=== PATIENT | male | born 1955 | race Caucasian/White ===

== ENCOUNTER 2023-09-17 17:19 | Emergency (ER) | payer MEDICARE, SELFPAY ==
[2023-09-17] VITALS (10 sets, daily range): BP systolic 94–145; BP diastolic 65–83; PULSE 70–77; TEMP 36.7; O2SAT 93–97; BMI 37.3
--- NOTE | 2023-09-17 17:29 | XR_ITS ---
The [address] [address] Patient Name: CHRISS DANIELSON MRN: [id number] date: 1955 Sex: M Assigned Patient Location: ER Current Patient Location: ED.MAIN Accession/Order Number: [id number] Exam Date: 09/17/2023 17:40 Report Date: 09/17/2023 18:26 At the request of: AHMET LYON Procedure: XR chest 1V EXAM: XR chest 1V at 1735 hours HISTORY: Chest pain COMPARISON: None. TECHNIQUE: AP upright portable chest x-ray FINDINGS: The heart is at the upper limits of normal in size for this projection. There is no evidence of cardiac decompensation. No acute infiltrate, effusion or pneumothorax is identified. The osseous structures are grossly intact. XR/XR chest 1V IMPRESSION: No acute infiltrate or evidence of cardiac decompensation. Electronically authenticated by: BOBO LEGGETT Date: 09/17/2023 18:26
--- NOTE | 2023-09-17 17:29 | ECG_ITS ---
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
--- NOTE | 2023-09-17 17:34 | ED.CHESTPAI1 ---
HPI - Chest Pain General Chief Complaint: Chest Pain Stated Complaint: CHEST PAIN Time Seen by Provider: 09/17/23 17:25 Source: patient Mode of arrival: walk-in Limitations: no limitations History of Present Illness HPI narrative: 68-year-old male presents to the emergency department for chest pain. It is in the middle part of his chest and it feels like a tightness. He also has it in his upper back and it has been there since this morning, continuously. No fever cough or shortness of breath. No injury or unusual activity. Related Data Home Medications ?Medication ?Instructions ?Recorded ?Confirmed allopurinol 100 mg tablet 100 mg PO DAILY 09/17/23 09/17/23 lisinopril 10 mg tablet 10 mg PO DAILY 09/17/23 09/17/23 Allergies Allergy/AdvReac Type Severity Reaction Status Date / Time No Known Drug Allergies Allergy Verified 09/17/23 17:22 Review of Systems ROS Narrative A ten point review of systems is negative except as noted above. Exam Narrative Exam Narrative: Nurses note and vital signs reviewed and patient is not hypoxic. General: The patient appears well and in no apparent distress. Patient is resting comfortably on cart. Skin: Warm, dry, no pallor noted. There is no rash noted. Head: Normocephalic, atraumatic Eye: Normal conjunctiva, no drainage Ears, Nose, Mouth, and Throat: oral mucosa is moist. Nares patent. Cardiovascular: Regular Rate and Rhythm Respiratory: Patient is in no distress, no accessory muscle use, lungs are clear to auscultation, no wheezing, rales or rhonchi Back: non-tender GI: Soft and nontender Musculoskeletal: The patient has no evidence of calf tenderness, no pitting edema, symmetrical pulses noted bilaterally Neurological: A&O, normal speech Psychiatric: Cooperative Constitutional Vital Signs, click to edit/add: Last Vital Signs Temp 98.0 F 09/17/23 17:23 Pulse 73 09/17/23 18:28 Resp 16 09/17/23 18:28 BP 113/73 09/17/23 18:28 Pulse Ox 94 L 09/17/23 18:28 Course Vital Signs Vital signs: Vital Signs Temperature 98.0 F 09/17/23 17:23 Pulse Rate 77 09/17/23 17:23 Respiratory Rate 18 09/17/23 17:23 Blood Pressure 145/83 H 09/17/23 17:23 Pulse Oximetry 97 09/17/23 17:23 Temperature 98.0 F 09/17/23 17:23 Pulse Rate 73 09/17/23 18:28 Respiratory Rate 16 09/17/23 18:28 Blood Pressure 113/73 09/17/23 18:28 Pulse Oximetry 94 L 09/17/23 18:28 MDM - Chest Pain MDM Narrative Medical decision making narrative: Initial blood work is negative including troponin. CTA is pending and the patient is signed out to Dr. Walsh at change of shift. Differential Diagnosis Differential diagnosis: Likely pneumothorax, unstable angina pectoris, atypical chest pain, st elevation myocardial infarction, costochondritis, chest pain and other (Thoracic aneurysm) Lab Data Attestation: I reviewed the patient's lab results. Labs: Lab Results 09/17/23 Range/Units 17:35 WBC 10.3 (4.0-11.0) 10^3/uL RBC 5.16 (4.70-6.10) 10^6/uL Hgb 15.1 (14.0-18.0) g/dL Hct 45.3 (42.0-54.0) % MCV 87.8 (80.0-94.0) fL MCH 29.3 (25.9-34.0) pg MCHC 33.3 (29.9-35.2) g/dL RDW 13.0 (11.0-15.0) % Plt Count 207 (150-450) 10^3/uL MPV 10.3 (9.5-13.5) fL Seg Neuts % (Manual) 40.0 Lymphocytes % (Manual) 36.0 (20.5-60.0) % Atypical Lymphs % (Man) 5.0 % Monocytes % (Manual) 15.0 H (1.7-12.0) % Eosinophils % (Manual) 2.0 (0.9-7.0) % Basophils % (Manual) 2.0 (0.2-2.0) % Neutrophils # (Manual) 4.12 (1.4-6.5) 10^3/uL Lymphocytes # (Manual) 3.70 (1.20-3.80) 10^3/uL Abs Atypical Lymphs Man 0.51 Monocytes # (Manual) 1.54 H (0.30-0.80) 10^3/uL Eosinophils # (Manual) 0.20 (0.00-0.70) 10^3/uL Basophils # (Manual) 0.20 H (0.00-0.10) 10^3/uL Sodium 138 (136-145) mmol/L Potassium 4.1 (3.5-5.1) mmol/L Chloride 103 (98-107) mmol/L Carbon Dioxide 26.5 (21.0-32.0) mmol/L Anion Gap 12.6 BUN 14.0 (7.0-18.0) mg/dL Creatinine 1.28 (0.70-1.30) mg/dL Est GFR ( Amer) >60 (>=60) Est GFR (Non-Af Amer) 56 L (>=60) BUN/Creatinine Ratio 10.9 Glucose 97 (74-106) mg/dL Calcium 9.2 (8.5-10.1) mg/dL Troponin I High Sens 10.2 (4.0-76.1) pg/mL Imaging Data Chest x-ray: Radiologist's impression: ITS Impressions Chest X-Ray 09/17/23 17:29 IMPRESSION: No acute infiltrate or evidence of cardiac decompensation. Electronically authenticated by: BOBO LEGGETT Date: 09/17/2023 18:26 ECG Data Attestation: I personally reviewed and interpreted this ECG as follows: (EKG on my interpretation shows normal sinus rhythm with a rate of 74 no acute change) Heart Score History: Moderately Suspicious ECG: Normal Age: >65 years Risk Factors: 1 or 2 Risk Factors Troponin: <Normal Limit Total Heart Score Recommendations & Risks:: 4 Discharge Plan Discharge Patient Disposition: Still a Patient
[2023-09-17 18:02] LABS: Hematocrit 45.3 % (42.0-54.0); Hemoglobin 15.1 g/dL (14.0-18.0); Mean Corpuscular HGB Conc 33.3 g/dL (29.9-35.2); Mean Corpuscular Hemoglobin 29.3 pg (25.9-34.0); Mean Corpuscular Volume 87.8 fL (80.0-94.0); Mean Platelet Volume 10.3 fL (9.5-13.5); Platelet Count 207 10^3/uL (150-450); Red Blood Count 5.16 10^6/uL (4.70-6.10); White Blood Count 10.3 10^3/uL (4.0-11.0)
[2023-09-17 18:24] LABS: Atypical Lymphocytes Abs Man 0.51; Monocytes Absolute Manual 1.54 10^3/uL (0.30-0.80); Segmented Neut Absolute Manual 4.12 10^3/uL (1.4-6.5)
[2023-09-17 18:30] LABS: Anion Gap 12.6; BUN Creatinine Ratio 10.9; Calcium 9.2 mg/dL (8.5-10.1); Carbon Dioxide 26.5 mmol/L (21.0-32.0); Chloride 103 mmol/L (98-107); Estimated GFR (African America >60 (>=60); Estimated GFR (Non-African Ame 56 (>=60); Glucose 97 mg/dL (74-106); Potassium 4.1 mmol/L (3.5-5.1); Sodium 138 mmol/L (136-145); Troponin I High Sensitivity 10.2 pg/mL (4.0-76.1)
--- NOTE | 2023-09-17 18:34 | CT_ITS ---
[address] [address] Patient Name: CHRISS DANIELSON MRN: [id number] date: 1955 Sex: M Assigned Patient Location: ER Current Patient Location: ED.MAIN Accession/Order Number: [id number] Exam Date: 09/17/2023 18:41 Report Date: 09/17/2023 19:51 At the request of: AHMET LYON Procedure: CT angio chest CTA CHEST. INDICATION: Chest and back pain. COMPARISON: None available. TECHNIQUE: CT pulmonary angiogram. Initially, limited axial non-contrast images through chest obtained to establish proper bolus timing. Subsequently, contrast enhanced axial CT images were obtained through the chest. Axial, sagittal and coronal reformatted maximum intensity projection images and / or 3D volume rendered images created. FINDINGS: PULMONARY ARTERIES: No intraluminal filling defects within the central pulmonary arteries to suggest pulmonary embolism.. Limited evaluation of the segmental and subsegmental branches due to suboptimal opacification. Normal RV:LV ratio (<1). AORTA: The thoracic aorta diameter is normal without aneurysm or dissection. LUNGS: There are mild subpleural groundglass opacities in the lower lobes. No pleural effusions.. No pneumothorax. LYMPH NODES: No enlarged mediastinal lymph nodes by CT criteria. HEART: Heart size is normal. No pericardial effusion. Coronary artery calcification. UPPER ABDOMEN: Images of the upper abdomen demonstrate no abnormality. MUSCULOSKELETAL: No acute osseous abnormality. CT/CT angio chest IMPRESSION: 1. No central pulmonary thromboembolic disease. Limited evaluation of the segmental and subsegmental branches. 2. No aortic aneurysm or dissection. 3. Mild groundglass opacities in the lower lobes which may represent atelectasis or infection/inflammation. Electronically authenticated by: JIM TOLBERT Date: 09/17/2023 19:51
== END 2023-09-17 20:15 | disposition home or self-care (01) ==
PROVIDERS: Emergency Medicine; Emergency Provider Internal Medicine; PCP Family Medicine
DX: R07.89 Other chest pain (principal)
CPT/HCPCS: 36415; 71045; 71275; 80048; 84484; 85007; 85027; 93005; 99285; Q9967

== ENCOUNTER 2024-01-03 10:37 | Outpatient (OUT) | payer MEDICARE, SELFPAY ==
--- OUTSIDE RECORDS SUMMARY | 2024-01-03 10:43 | XMS_ITS | CCD ---
Author Organization [facility] Care Team Providers Care Child Care Development Specialist Name Role Phone DR ANDRZEJ ZENG Consulting Unavailable KARRI, DR ANDRZEJ Ramesh Attending Unavailable DR ANDRZEJ ZENG Admitting Unavailable KARRI, DR ANDRZEJ Ramesh Primary Care Unavailable Elvis Yang Unavailable MD Andrzej Zeng Primary Care Provider MD Anuj Spicer Emergency Provider [phone] DO Elvis Yang Attending Provider Virginia Alfredo Unavailable Anne [place] Unavailable ANDRZEJ ZENG Attending Unavailable Andrzej Zeng Primary Care Unavailable Anuj Spicer Attending Unavailable Anuj Spicer Admitting Unavailable Elvis Yang Attending Unavailable Elvis Yang Admitting Unavailable Andrzej Zeng Primary Care Unavailable Medications Current Medications Medication Drug Class(es) Dates Sig (Normalized) Sig (Original) acetaminophen 500 mg oral capsule (3 sources) take 2 capsules by mouth every six hours Acetaminophen 500 MG 2 capsule as needed Orally every 6 hrs Active take 1 capsule by mouth every si x hours Acetaminophen 500 MG 1 capsule as needed Orally every 6 hrs Active allopurinol 100 mg oral tablet (3 sources) Xanthine Oxidase Inhibitor take 1 tablet by mouth every twenty-four hours Allopurinol 100 MG 1 tablet Orally Once a day Active lisinopril 10 mg oral tablet (3 sources) Angiotensin Converting Enzyme Inhibitor take 1 tablet by mouth every twenty-four hours Lisinopril 10 MG 1 tablet Orally Once a day Active Problems Active Problems Problem Classification Problem Date Documented Da te Episodic/Chronic Diabetes mellitus without complication (1 source) Prediabetes; Translations: [PREDIABETES] Onset: 06-29-2022 Episodic Disorders of lipid metabolism (1 source) Hyperlipidemia, unspecified; Translations: [HYPERLIPIDEMIA UNSPECIFIED] Onset: 06-29-2022 Chronic Essential hypertension (4 sources) Essential (primary) hypertension; Translations: [ESSENTIAL PRIMARY HYPERTENSION] Onset: 06-26-2022 Chronic Fever of unknown origin (1 source) Fever, unspecified Episodic Fracture of upper limb (3 sources) Other fractures of lower end of right radius, initial encounter for closed fracture; Translations: [Closed fracture of distal end of radius] Episodic Nutritional deficiencies (1 source) Vitamin D deficiency, unspecified; Translations: [VITAMIN D DEFICIENCY UNSPECIFIED] Onset: 06-29-2022 Chronic Other aftercare (1 source) 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; Translations: [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 DRUG THERAPY] Onset: 06-29-2022 Episodic Other nutritional; endocrine; and metabolic disorders (1 source) Obesity, unspecified; Translations: [OBESITY UNSPECIFIED] Onset: 06-29-2022 Chronic Other nutritional; endocrine; and metabolic disorders (1 source) Body mass index (BMI) 30.0-30.9, adult; Translations: [BODY MASS INDEX BMI 30.0-30.9 ADULT] Onset: 06-29-2022 Chronic Other screening for suspected conditions (not mental disorders or infectious disease) (1 source) Encounter for screening for malignant neoplasm of prostate; Translations: [ENC SCREEN MALIG NEOPLASM PROSTATE] Onset: 06-29-2022 Episodic Unclassified (1 source) Other fractures of lower end of right radius, initial encounter for closed fracture; Translations: [Other fractures of lower end of right radius, initial encounter for closed fracture] Onset: 02-01-2023 Past or Other Problems Problem Classification Problem Date Documented Da te Episodic/Chronic Other non-traumatic joint disorders (1 source) Pain in right wrist; Translations: [Pain in right wrist] Onset: 01-06-2023 Episodic Viral infection (1 source) COVID-19 Results Test Name Value Interpretation Reference Range Facility COVID/FLU/RSV RT-PCRon 04-13 SARS-CoV-2 (COVID-19) RNA KRISTIE+probe Ql (Unsp spec) Positive [facility] [employer] Other COVID/FLU/RSV RT-PCR Negative [facility] Other XR wrist RT 2Von 02-01-2023 XR wrist RT 2V [facility] [address] [place] [address] [place] [address] XRay Report Signed Patient: Alfredito Rodriguez MR#: [id number] 09 : 1955 Acct:[id number] Age/Sex: 67 / M ADM Date: 02/01/23 Loc: [facility] Room: Type: [facility] Attending Dr: Elvis Yang DO Copies to: Elvis Yang DO Ordering Provider: Elvis Yang DO Date of Service: 02/01/23 XR/XR wrist RT 2V: Other closed fracture of distal end of right radius, initial RIGHT WRIST - 2 views COMPARISON: 01/06/2023 CLINICAL DATA: Follow-up distal radius fracture. AP and lateral views were obtained. A nondisplaced intra-articular fracture is again noted at the distal radius. There is no change in alignment though there is developing sclerosis. No new f racture or dislocation is identified. There is no prominent soft tissue swelling. XR/XR wrist RT 2V IMPRESSION: STABLE HEALING DISTAL RADIUS FRACTURE. Impression dictated by: Linsey De Leon M.D.02/01/2023 2:43 PM Dictation Location: [place] [address] Transcribed By: [facility] 02/01/23 1443 Dictated By: Linsey De Leon MD 02/01/23 144 Signed By: 02/01/23 1443 Normal [facility] XR wrist RT 2V [facility] [employer] Other XR wrist RT 2V [facility] Other XR wrist RT 2V [address] [facility] [employer] Other XR wrist RT 2[place] [address] No rt [employer] Other XR wrist RT 2V XRay Report [employer] Other XR wrist RT 2V Signed [employer] Other XR wrist RT 2V Patient: Alfredito Rodriguez MR#: [id number] [facility] Other XR wrist RT 2V 09 [employer] Other XR wrist RT 2V : 1955 Acct:[id number] [facility] Other XR wrist RT 2V Age/Sex: 67 / M ADM Date: 02/01/23 [facility] Other XR wrist RT 2V Loc: [facility] Room: Type: [facility] Other XR wrist RT 2V Attending Dr: Elvis Yang DO [facility] Other XR wrist RT 2V Copies to: Elvis Yang DO [facility] Other XR wrist RT 2V Ordering Provider: Elvis Yang DO [facility] Other XR wrist RT 2V Date of Service: 02/01/23 [facility] Other XR wrist RT 2V XR/XR wrist RT 2V: Other closed fracture of distal end of right radius, [facility] Other XR wrist RT 2V initial [employer] Other XR wrist RT 2V RIGHT WRIST - 2 views [facility] Other XR wrist RT 2V COMPARISON: 01/06/2023 [facility] Other XR wrist RT 2V CLINICAL DATA: Follow-up distal radius fracture. [facility] Other XR wrist RT 2V AP and lateral views were obtained. A nondisplaced intra-articular fracture is again noted at the [facility] Other XR wrist RT 2V distal radius. There is no change in alignment though there is developing sclerosis. No new f [facility] Other XR wrist RT 2V racture or dislocation is identified. There is no prominent soft tissue swelling. [facility] Other XR wrist RT 2V XR/XR wrist RT 2V [facility] Other XR wrist RT 2V IMPRESSION: [employer] Other XR wrist RT 2V STABLE HEALING DISTAL RADIUS FRACTURE. [facility] Other XR wrist RT 2V Impression dictated by: Linsey De Leon M.D.02/01/2023 2:43 PM [facility] Other XR wrist RT 2V Dictation Location: [place] [address] [facility] Other XR wrist RT 2V Transcribed By: [facility] 02/01/23 [facility] Other XR wrist RT 2V Dictated By: Linsey De Leon MD 02/01/23 [facility] Other XR wrist RT 2V Signed By: [employer] Other XR wrist RT 2V 02/01/23 [facility] [employer] Other XR wrist RT min 3V*on 2022 XR wrist RT min 3V* [facility] [place] [address] [place] [address] XRay Report Signed Patient: Alfredito Rodriguez MR#: [id number] 09 : 1955 Acct:[id number] Age/Sex: 67 / M ADM Date: 01/06/23 Loc: ER Room: Type: [facility] ER Attending Dr: Copies to: Anuj Spicer MD Ordering Provider: Anuj Spicer MD Date of Service: 01/06/23 XR/XR wrist RT min 3V*: Fall XR wrist RT min 3V* 01/06/2023 5:47 PM SIGNS AND SYMPTOMS: Fall, right wrist pain PROTOCOL: Frontal, lateral, and oblique radiographs of the right wrist COMPARISON: None FINDINGS: Lucency traverses the articular surface of the distal radius suspicious for an intra-articular distal radius fracture. The radiocarpal joint and carpal rows are otherwise preserved. The distal ulna is intact. There is nonspecific soft tissue swelling. XR/XR wrist RT min 3V* IMPRESSION: Lucency traverses the articular surface of the distal radius suspicious for an intra-articular distal radius fracture. Impression dictated by: Blaise Pastrana M.D.01/06/2023 5:49 PM Dictation Location: [place] [address] Transcribed By: MINA 01/06/231748 Dictated By: Blaise Pastrana II, MD 01/06/231746 Signed By: 01/06/231748 Normal [facility] CBC AUTO DIFFon 06-26-2022 BASO # 0.0 103/ul Normal 0.0-0.1 [facility] Comment on above: Performed By: #### C BC #### [facility] [address] [place] [address] Dr. Talia Santana Basophils/100 WBC (Bld) 0.6 % Normal 0.2-2.0 [facility] Comment on above: Performed By: #### C BC #### [facility] [address] [place] [address] Dr. Talia Santana EO # 0.1 103/ul Normal 0.0-0.7 [facility] Comment on above: Performed By: #### C BC #### [facility] [address] [place] [address] Dr. Talia Santana Eosinophils/100 WBC (Bld) 2.0 % Normal 0.9-7.0 [facility] Comment on above: Performed By: #### C BC #### [facility] [address] [place] [address] Dr. Talia Santana Erythrocyte distribution width (RBC) [Ratio] 13.5 % Normal 11.0-15.0 [facility] Comment on above: Performed By: #### C BC #### [facility] [address] [place] [address] Dr. Talia Santana Hematocrit (Bld) [Volume fraction] 41.9 % Critically low 42.0-54.0 [facility] Comment on above: Performed By: #### C BC #### [facility] [address] [place] [address] Dr. Talia Santana Hemoglobin (Bld) [Mass/Vol] 13.8 g/dL Critically low 14.0-18.0 [facility] Comment on above: Performed By: #### C BC #### [facility] [address] [place] [address] Dr. Talia Santana IG # 0.03 10e3/ul Normal 0.00-0.03 [facility] Comment on above: Performed By: #### C BC #### [facility] [address] [place] [address] Dr. Talia Santana IG % 0.5 % Normal 0.0-0.5 [facility] Comment on above: Performed By: #### C BC #### [facility] [address] [place] [address] Dr. Talia Santana LYMPH # 1.6 103/ul Normal 1.2-3.8 [facility] Comment on above: Performed By: #### C BC #### [facility] [address] [place] [address] Dr. Talia Santana Lymphocytes/100 WBC (Bld) 24.1 % Normal 20.5-60.0 [facility] Comment on above: Performed By: #### C BC #### [facility] [address] [place] [address] Dr. Talia Santana MANUAL DIFF REQ NO Normal [facility] Comment on above: Performed By: #### C BC #### [facility] [address] [place] [address] Dr. Talia Santana MCH (RBC) [Entitic mass] 28.9 pg Normal 25.9-34.0 [facility] Comment on above: Performed By: #### C BC #### [facility] [address] [place] [address] Dr. Talia Santana MCHC (RBC) [Mass/Vol] 32.9 g/dL Normal 29.9-35.2 [facility] Comment on above: Performed By: #### C BC #### [facility] [address] [place] [address] [address] Talia Santana MCV (RBC) [Entitic vol] 87.8 fL Normal 80.0-94.0 [facility] Comment on above: Performed By: #### C BC #### [facility] [address] [address] [address] Talia Santana MONO # 0.8 103/ul Normal 0.3-0.8 [facility] Comment on above: Performed By: #### C BC #### [facility] [address] [place] [address] Dr. Talia Santana Monocytes/100 WBC (Bld) 12.7 % Critically high 1.7-12.0 [facility] Comment on above: Performed By: #### C BC #### [facility] [address] [place] [address] Dr. Talia Santana NEUT # 4.0 103/ul Normal 1.4-6.5 [facility] Comment on above: Performed By: #### C BC #### [facility] [address] [place] [address] Dr. Talia Santana Neutrophils/100 WBC (Bld) 60.1 % Normal 43.0-75.0 [facility] Comment on above: Performed By: #### C BC #### [facility] [address] [place] [address] Dr. Talia Santana Platelet mean volume (Bld) [Entitic vol] 9.8 fL Normal 9.5-13.5 [facility] Comment on above: Performed By: #### C BC #### [facility] [address] [place] [address] Dr. Talia Santana PLT 227 103/ul Normal 150-450 [facility] Comment on above: Performed By: #### C BC #### [facility] [address] [place] [address] Dr. Talia Santana RBC 4.77 106/ul Normal 4.70-6.10 [facility] Comment on above: Performed By: #### C BC #### [facility] [address] [address] [address] Talia Santana WBC 6.6 103/ul Normal 4.0-11.0 [facility] Comment on above: Performed By: #### C BC #### [facility] [address] [address] [address] Talia Santana GLYCOHEMOGLOBIN A1Con 2022 ADA RECOMMENDATION SEE BELOW Normal [facility] Comment on above: Result Comment: ADA RECOMMENDED LIMIT 4.0 - 6.0 ADA THERAPEUTIC TARGET < 7.0 ACTION SUGGESTED > 7.0 Performed By: #### A 1C #### [facility] [address] [place] [address] Dr. Talia Santana Glucose [Mass/Vol] 131 mg/dL Normal [facility] Comment on above: Performed By: #### A 1C #### [facility] [address] [place] [address] Dr. Talia Santana HbA1c (Bld) [Mass fraction] 6.2 % Normal 4.5-6.2 [facility] Comment on above: Performed By: #### A 1C #### [facility] [address] [place] [address] Dr. Talia Santana LIPID PROFILEon 06-26-2022 CHOL-HDL RATIO NORM SEE BELOW Normal [facility] Comment on above: Result Comment: 3.3 - 4.4 LOW RISK 4.4 - 7.1 AVERAGE RISK 7.1 - 11.0 MODERATE RISK >11.0 HIGH RISK Performed By: #### L IVER, BMP, LIPID, TSH #### [facility] [address] [place] [address] Dr. Talia Santana Cholesterol [Mass/Vol] 144 mg/dL Normal <=200 [facility] Comment on above: Performed By: #### L IVER, BMP, LIPID, TSH #### [facility] [address] [place] [address] Dr. Talia Santana Cholesterol in HDL [Mass/Vol] 33 mg/dL Critically low 40-60 [facility] Comment on above: Performed By: #### L IVER, BMP, LIPID, TSH #### [facility] [address] [place] [address] [address] Talia Santana Cholesterol in LDL [Mass/Vol] 91.6 mg/dL Normal [facility] Comment on above: Performed By: #### L IVER, BMP, LIPID, TSH #### [facility] [address] [place] [address] [address] Talia Santana Cholesterol.total/Ch olesterol in HDL [Mass ratio] 4.4 {ratio} Normal [facility] Comment on above: Performed By: #### L IVER, BMP, LIPID, TSH #### [facility] [address] [place] [address] [address] Talia Santana HDL NORMAL > or = 60 mg/dl - LOW CARDIOVASCULAR RISK <40 mg/dl - HIGH CARDIOVASCULAR RISK Normal [facility] Comment on above: Performed By: #### L IVER, BMP, LIPID, TSH #### [facility] [address] [place] [address] [address] Talia Santana LDL CALC NORMAL SEE BELOW Normal [facility] Comment on above: Result Comment: <100 mg/dl OPTIMAL 100 - 129 mg/dl NEAR OR ABOVE OPTIMAL 130 - 159 mg/dl BORDERLINE HIGH 160 - 189 mg/dl HIGH >190 mg/dl VERY HIGH Performed By: #### L IVER, BMP, LIPID, TSH #### [facility] [address] [place] [address] [address] Talia Santana Triglyceride [Mass/Vol] 97 mg/dL Normal <=150 [facility] Comment on above: Performed By: #### L IVER, BMP, LIPID, TSH #### [facility] [address] [place] [address] [address] Talia Santana VLDL CALC 19.4 mg/dL Normal [facility] Comment on above: Performed By: #### L IVER, BMP, LIPID, TSH #### [facility] [address] [place] [address] [address] Talia Santana LIVER PROFILEon 06-26-2022 Albumin [Mass/Vol] 3.5 g/dL Normal 3.4-5.0 [facility] Comment on above: Performed By: #### L IVER, BMP, LIPID, TSH #### [facility] [address] [place] [address] [address] Talia Santana Albumin/Globulin [Mass ratio] 0.9 {ratio} Normal [facility] Comment on above: Performed By: #### L IVER, BMP, LIPID, TSH #### [facility] [address] [place] [address] Dr. Talia Santana ALP [Catalytic activity/Vol] 64 U/L Normal 46-116 [facility] Comment on above: Performed By: #### L IVER, BMP, LIPID, TSH #### [facility] [address] [place] [address] Dr. Talia Santana ALT [Catalytic activity/Vol] 31 U/L Normal 16-63 [facility] Comment on above: Performed By: #### L IVER, BMP, LIPID, TSH #### [facility] [address] [place] [address] Dr. Talia Santana AST [Catalytic activity/Vol] 22 U/L Normal 15-37 [facility] Comment on above: Performed By: #### L IVER, BMP, LIPID, TSH #### [facility] [address] [place] [address] Dr. Talia Santana BILI, CONJUGATED 0.2 mg/dL Normal 0.0-0.2 [facility] Comment on above: Performed By: #### L IVER, BMP, LIPID, TSH #### [facility] [address] [place] [address] Dr. Talia Santana Bilirubin [Mass/Vol] 0.8 mg/dL Normal 0.2-1.0 [facility] Comment on above: Performed By: #### L IVER, BMP, LIPID, TSH #### [facility] [address] [place] [address] Dr. Talia Santana Globulin (S) [Mass/Vol] 3.9 g/dL Normal [facility] Comment on above: Performed By: #### L IVER, BMP, LIPID, TSH #### [facility] [address] [place] [address] Dr. Talia Santana Protein [Mass/Vol] 7.4 g/dL Normal 6.4-8.2 [facility] Comment on above: Performed By: #### L IVER, BMP, LIPID, TSH #### [facility] [address] [place] [address] Dr. Talia Santana PROF CHEM 8 (BAS METB)on Anion gap [Moles/Vol] 13.7 mmol/L Normal [facility] Comment on above: Performed By: #### L IVER, BMP, LIPID, TSH #### [facility] [address] [place] [address] Dr. Talia Santana Calcium [Mass/Vol] 9.0 mg/dL Normal 8.5-10.1 [facility] Comment on above: Performed By: #### L IVER, BMP, LIPID, TSH #### [facility] [address] [place] [address] Dr. Talia Santana Chloride [Moles/Vol] 104 mmol/L Normal 98-107 [facility] Comment on above: Performed By: #### L IVER, BMP, LIPID, TSH #### [facility] [address] [place] [address] Dr. Talia Santana CO2 [Moles/Vol] 26.7 mmol/L Normal 21.0-32.0 [facility] Comment on above: Performed By: #### L IVER, BMP, LIPID, TSH #### [facility] [address] [place] [address] Dr. Talia Santana Creatinine [Mass/Vol] 1.16 mg/dL Normal 0.70-1.30 [facility] Comment on above: Performed By: #### L IVER, BMP, LIPID, TSH #### [facility] [address] [place] [address] Dr. Talia Santana EGFR-AF POLISH >60 Normal >=60 [facility] Comment on above: Performed By: #### L IVER, BMP, LIPID, TSH #### [facility] [address] [place] [address] Dr. Talia Santana EGFR-NON AF POLISH >60 Normal >=60 [facility] Comment on above: Performed By: #### L IVER, BMP, LIPID, TSH #### [facility] [address] [place] [address] Dr. Talia Santana Glucose [Mass/Vol] 123 mg/dL Critically high 74-106 [facility] Comment on above: Performed By: #### L IVER, BMP, LIPID, TSH #### [facility] [address] [place] [address] Dr. Talia Santana Potassium [Moles/Vol] 4.4 mmol/L Normal 3.5-5.1 [facility] Comment on above: Performed By: #### L IVER, BMP, LIPID, TSH #### [facility] [address] [place] [address] Dr. Talia Santana Sodium [Moles/Vol] 140 mmol/L Normal 136-145 [facility] Comment on above: Performed By: #### L IVER, BMP, LIPID, TSH #### [facility] [address] [place] [address] Dr. Talia Santana Urea nitrogen [Mass/Vol] 12.0 mg/dL Normal 7.0-18.0 [facility] Comment on above: Performed By: #### L IVER, BMP, LIPID, TSH #### [facility] [address] [place] [address] Dr. Talia Santana Urea nitrogen/Creatinine [Mass ratio] 10.3 mg/mg Normal [facility] Comment on above: Performed By: #### L IVER, BMP, LIPID, TSH #### [facility] [address] [place] [address] Dr. Talia Santana TSHon 06-26-2022 TSH 1.903 uIU/mL Normal 0.358-3.740 [facility] Comment on above: Performed By: #### L IVER, BMP, LIPID, TSH #### [facility] [address] [place] [address] Dr. Talia Santana VITAMIN D 25 OHon 06-26-2022 VIT D 25-OH 26.4 ng/mL Normal [facility] Comment on above: Performed By: #### P SASC, VITAD #### [facility] [address] [place] [address] [address] Talia Santana VIT D RANGES SEE BELOW Normal [facility] Comment on above: Result Comment: <20 ng/mL Vit D deficient 20 - <30 ng/mL Vit D insufficient 30 - 100 ng/mL Vit D sufficient >100 ng/mL Potential Toxicity Performed By: #### P SASC, VITAD #### [facility] [address] [address] [address] Talia Santana Vital Signs Date Time Vital Sign Value Performing Clinician Facility 04-13-2023 14:00-0500 Body height 175.26 cm Anne Norma Other [facility] Other 04-13-2023 14:00-0500 Body mass index (BMI) [Ratio] 38.39 kg/m2 Anne Norma Other [facility] Other 04-13-2023 14:00-0500 Body temperature 100.8 [degF] Anne Carneymond Other [facility] Other 04-13-2023 14:00-0500 Body weight 117.94 kg Anne Carneymond Other [facility] Other 04-13-2023 14:00-0500 Respiratory rate 20 /min Anne Carneymond Other [facility] Other 04-13-2023 14:00-0500 SaO2% (BldA) [Mass fraction] 92 % Anne Carneymond Other [facility] Other 01-06-2023 18:06-0400 Body temperature 97.1 [degF] MD Andrzej Zeng Work Phone: [facility] 01-06-2023 18:06-0400 Diastolic blood pressure 68 mm[Hg] MD Andrzej Zeng Work Phone: [facility] 01-06-2023 18:06-0400 Heart rate 67 /min MD Andrzej Zeng Work Phone: [facility] 01-06-2023 18:06-0400 Respiratory rate 18 /min MD Andrzej Zeng Work Phone: [facility] 01-06-2023 18:06-0400 SaO2% (BldA) [Mass fraction] 96 % MD Andrzej Zeng Work Phone: [facility] 01-06-2023 18:06-0400 Systolic blood pressure 125 mm[Hg] MD Andrzej Zeng Work Phone: [facility] 01-06-2023 16:48-0400 Body height 177.8 cm MD Andrzej Zeng Work Phone: [facility] 01-06-2023 16:48-0400 Body weight 116 kg MD Andrzej Zeng Work Phone: [facility] Encounters Encounter Date Encounter Type Care Provider Facility Start: 07-04-2023 End: 07-04-2023 ambulatory ANDRZEJ ZENG Not Available Start: 04-13-2023 End: 04-13-2023 ambulatory Anne Green Other [facility] Other Start: 04-13-2023 Office outpatient vi sit 15 minutes Anne Green [facility] Start: 02-01-2023 Postop follow up vis it related to original px Virginia Alfredo [facility] Start: 02-01-2023 End: 02-01-2023 Patient encounter procedure MD Andrzej Zeng Work Phone: [facility] Start: 02-01-2023 End: 02-01-2023 ambulatory MD Andrzej Zeng Work Phone: [facility] Work Phone: Start: 01-09-2023 End: 01-09-2023 ambulatory Elvis Yang Other [facility] [employer] Other Start: 01-09-2023 [facility] visit new patient Elvis Yang [facility] Start: 01-06-2023 End: 01-06-2023 Emergency department patient visit MD Andrzej Zeng Work Phone: [facility] Work Phone: Start: 06-26-2022 End: 06-27-[address] ANDRZEJ ZENG Facility:H1 Procedures Date Procedure Procedure Detail Performing Clinician Start: 02-01-2023 Plain X-ray of right wrist MD Andrzej Zeng Work Phone: Start: 01-06-2023 Plain X-ray of right wrist MD Andrzej Zeng Work Phone: Start: 06-26-[address] ANDRZEJ HERNANDEZ Comment on above: Performed By: #### P SASC, VITAD #### [facility] [address] [place] [address] Dr. Talia Santana Plan of Treatment Date Care Activity Detail Author Patient Education Radius Fracture (DC) [facility] Work Phone: Patient referral [facility] Work Phone: Payers Date Payer Category Payer Self-pay [id number] [phone] [id number] 1958 Medicare [id number] 1955 Unknown [id number] 1955 Unknown [id number] Unknown [id number] Unknown [id number] Worker's Compensation [employer] [place] [id number] Social History Date Type Detail Facility Sex Assigned At [facility] Other Start: [facility]06-2023 [facility] Start: 1955 Sex Assigned At Male F [facility] Evaluation note 04-13-2023 Note Date & Type Note Facility 04-13-2023 Evaluation note Encounter Date Diagnosis Assessment Notes Mar, Fever, unspecified (ICD-10 - R50.9) Mar, COVID-19 (ICD-10 - U07.1) Discharge Instructions for COVID-19 (Suspected or Confirmed ) material was printed Drink plenty fluids, get plenty of rest. Take Tylenol or Motrin as needed for aches pains or fevers. You must quarantine for 5 days after the onset of your symptoms of COVID. Follow-up with your family physician if no improvement in 2 to 3 days [facility] Other Evaluation note 02-01-2023 Note Date & Type Note Facility 02-01-2023 Evaluation note Encounter Date Diagnosis Assessment Notes Jan, Other closed fracture of distal end of right radius, initial encounter (ICD-10 - S52.591A) Radiographs reviewed with patient today. Disucssed with patient he can work on range of motion exercises. Instructed to continue to wear brace for 2 weeks then he can progress out of brace. Instructed to call with any questions or concerns Examination and assessment of this patient was performed by Virginia Alferdo NP and patient will continue with the treatment plan per Dr. Yang, who initiated this treatment plan. Dr. Matthews is present in the office today and providing supervision. [facility] Other Evaluation note 01-09-2023 Note Date & Type Note Facility 01-09-2023 Evaluation note Encounter Date Diagnosis Assessment Notes Dec, Other closed fracture of distal end of right radius, initial encounter (ICD-10 - S52.591A) Alfredito presents with right intra-articular distal radius fracture. At this juncture we have discussed the findings and diagnosis as well as personally reviewed appropriate imaging and performed interpretation of related testing and examination with the patient in office today. Prior medical notes from ED and history have been reviewed. At this time I would recommend nonoperative treatment with immobilization and limited weightbearing. We placed him into a removable wrist splint today which he should wear at all times except for hygiene purposes. Okay to work on range of motion while performing hygiene. We will plan for follow-up 3 to 4 weeks for repeat x-rays of the wrist. The patient has been involved in our cooperative treatment plan and agrees to move forward with treatment at this time. The patient has suffered a nondisplaced distal radius fracture. This fracture is stable and we will treat this non-operatively . We will treat this in a removable splint. The patient appears to be tolerating this well. We discussed that this injury can take at least six weeks to have early healing will need gentle motion and strength exercise for months after healing. We discussed the need to limit any weight bearing to arm or strenuous activity such as lifting. We discussed the need to keep the splint clean and dry. 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 We discussed Tylenol and Ibuprofen for pain control. Dec, Other See orders for this visit as documented in the electronic medical record. [facility] Other Evaluation note Note Date & Type Note Facility Evaluation note No assessment information [facility] Work Phone: History general Narrative - Reported Note Date & Type Note Facility History general Narrative - Reported Type Medical History Gout Medical History high blood pressure Medical History kidney stones Hospitalization History chest pain [facility] Other History general Narrative - Reported Note Date & Type Note Facility History general Narrative - Reported Type Medical History Gout Medical History high blood pressure Medical History kidney stones Hospitalization History No know Hospitalization history [facility] Other Summary Purpose Family History No Family History Records FoundNo Family History Records FoundNo Family History Records Found Advance Directives No Advanced Directives Records Found Advance Directive Response Recorded Date/ Time Advance Directives No December 7:19pm Chief Complaint and Reason for Visit Chief Complaint fall-1600 Additional Source Comments (unrecognized sect ion and content) No Status Records FoundNo Status Records FoundNo Status Records Found INFORMATION SOURCE (unrecogn ized section and content) DATE CREATED AUTHOR 06/30/2022 [facility] DATE CREATED AUTHOR AUTHOR'S ORGANIZ ATION 07/05/2023 [facility] EPIC DATE CREATED AUTHOR AUTHOR'S ORGANIZ ATION 10/11/2023 [facility] REASON FOR VISIT (unrecogniz ed section and content) Right Wrist InjuryRecheck Ri ght WristHEADACHE, FEVER, DRAINAGE AND SOME COUGHING Care Teams (unrecognized sec tion and content) Team Status: Active Member Role Status Dates Andrzej Zeng MD Primary Care Provider Active Team Status: Inactive Member Role Status Dates Andrzej Zeng MD Primary Care Provider Active Anuj Spicer MD Emergency Provider Active Team Status: Inactive Member Role Status Dates Andrzej Zeng MD Primary Care Provider Active Elvis Yang DO Attending Provider Active Goals (unrecognized section and content) Goals may be documented in a n alternate section FOR RECORDS PERTAINING TO PATIENTS WHO ARE OR HAVE BEEN ENROLLED IN A CHEMICAL DEPENDENCY/SUBSTANCEABUSE PROGRAM, SOME INFORMATION MAY BE OMITTED. This clinical summary was aggregated from multiple sources. Caution should be exercised in using it in the provision of clinical care. This summary normalizes information from multiple sources, and as a consequence, information in this document may materially change the coding, format and clinical context of patient data. In addition, data may be omitted in some cases. CLINICAL DECISIONS SHOULD BE BASED ON THE PRIMARY CLINICAL RECORDS. [facility] [employer] [facility]. provides no warranty or guarantee of the accuracy or completeness of information in this document.
[2024-01-03 11:04] LABS: Basophils Absolute Auto 0.1 10^3/uL (0.0-0.1); Basophils Percent Auto 0.9 % (0.2-2.0); Eosinophils Absolute Auto 0.1 10^3/uL (0.0-0.7); Eosinophils Percent Auto 1.6 % (0.9-7.0); Hematocrit 45.6 % (42.0-54.0); Immature Granulocytes Abs Auto 0.05 10^3/uL (0.00-0.03); Immature Granulocytes Pct Auto 0.6 % (0.0-0.5); Lymphocytes Absolute Auto 2.4 10^3/uL (1.2-3.8); Lymphocytes Percent Auto 27.6 % (20.5-60.0); Mean Corpuscular HGB Conc 32.9 g/dL (29.9-35.2); Mean Corpuscular Hemoglobin 28.6 pg (25.9-34.0); Mean Corpuscular Volume 86.9 fL (80.0-94.0); Mean Platelet Volume 9.5 fL (9.5-13.5); Monocytes Absolute Auto 1.3 10^3/uL (0.3-0.8); Monocytes Percent Auto 14.9 % (1.7-12.0); Neutrophils Absolute Auto 4.7 10^3/uL (1.4-6.5); Neutrophils Percent Auto 54.4 % (43.0-75.0); Platelet Count 234 10^3/uL (150-450); Red Blood Count 5.25 10^6/uL (4.70-6.10); Red Cell Distribution Width 13.8 % (11.0-15.0); White Blood Count 8.7 10^3/uL (4.0-11.0)
[2024-01-03 11:45] LABS: Estimated Average Glucose 143 mg/dL; Glycohemoglobin A1C 6.6 % (4.5-6.2)
[2024-01-03 11:54] LABS: Alanine Aminotransferase 31 U/L (16-63); Albumin Globulin Ratio 0.7; Albumin Level 3.3 g/dL (3.4-5.0); Alkaline Phosphatase 70 U/L (46-116); Anion Gap 12.6; Aspartate Amino Transferase 23 U/L (15-37); BUN Creatinine Ratio 14.8; Bilirubin Direct 0.1 mg/dL (0.0-0.2); Bilirubin Total 0.6 mg/dL (0.2-1.0); Calcium 9.3 mg/dL (8.5-10.1); Carbon Dioxide 26.7 mmol/L (21.0-32.0); Chloride 102 mmol/L (98-107); Cholesterol 147 mg/dL (<=200); Estimated GFR (African America >60 (>=60); Estimated GFR (Non-African Ame 56 (>=60); Globulin 4.6 g/dL; Glucose 111 mg/dL (74-106); HDL Cholesterol 37 mg/dL (40-60); Potassium 4.3 mmol/L (3.5-5.1); Sodium 137 mmol/L (136-145); Thyroid Stimulating Hormone 1.992 uIU/mL (0.358-3.740); Total Protein 7.9 g/dL (6.4-8.2); Triglycerides 156 mg/dL (<=150); VLDL CHOLESTEROL 31.2 mg/dL
[2024-01-03 12:31] LABS: Prostate Specific Antigen Scrn 2.29 ng/mL (<=4.00)
== END 2024-01-03 10:38 | disposition home or self-care (01) ==
PROVIDERS: PCP Family Medicine; Visit Provider Family Medicine
DX: E78.5 Hyperlipidemia, unspecified (principal); I10 Essential (primary) hypertension; R73.03 Prediabetes; Z79.899 Other long term (current) drug therapy; E66.9 Obesity, unspecified; Z12.5 Encounter for screening for malignant neoplasm of prostate; E55.9 Vitamin D deficiency, unspecified
CPT/HCPCS: 36415; 80048; 80061; 80076; 82306; 83036; 84443; 85025; G0103

== ENCOUNTER 2024-09-07 10:59 | Outpatient (OUT) | payer MEDICARE, SELFPAY ==
--- OUTSIDE RECORDS SUMMARY | 2024-09-07 11:18 | XMS_ITS | CCD ---
Author Organization [facility] Care Team Providers Care Product Safety Technician Name Role Phone DR ANDRZEJ ZENG Consulting Unavailable KARRI, DR ANDRZEJ Ramesh Attending Unavailable KARRI, DR ANDRZEJ Ramesh Admitting Unavailable KARRI, DR ANDRZEJ Ramesh Primary Care Unavailable Elvis Yang Unavailable MD Andrzej Zeng Primary Care Provider MD Anuj Spicer Emergency Provider DO Elvis Yang Attending Provider Virginia Alfredo Unavailable Anne Green Unavailable Andrzej Zeng Primary Care Unavailable Anuj Spicer Attending Unavailable Anuj Spicer Admitting Unavailable Elvis Yang Attending Unavailable Elvis Yang Admitting Unavailable Andrzej Zeng Primary Care Unavailable Andrzej Zeng MD Primary Care Provider ANDRZEJ ZENG Attending Unavailable ANDRZEJ ZENG Attending Unavailable ANRDZEJ ZENG Attending Unavailable Medications Current Medications Medication Drug Class(es) [...] hrs Active allopurinol 100 mg oral tablet (10 sources) Xanthine Oxidase Inhibitor Start: 03-09-2024 take 1 tablet by mouth once daily allopurinol (Zyloprim) 100 MG tablet Indications: Arthritis, gouty Take 1 tablet by mouth once daily 90 tablet 03/09/2024 Active Start: 12-09-2023 take 1 tablet by kristen th once daily allopurinol (Zyloprim) 100 MG tablet Indications: Arthritis, gouty Take 1 tablet by mouth once daily 90 tablet 12/09/2023 Active take 1 tablet by kristen th every twenty-four hours Allopurinol 100 MG 1 tablet Orally Once a day Active cholecalciferol 0.05 mg oral tablet (7 sources) Vitamin D End: 03-12-2024 take 1 tablet by mouth in the morning cholecalciferol (Vitamin D-3) 50 MCG (2000 UT) tablet Take 2,000 Units by mouth in the morning. 03/12/2024 Discontinued lisinopril 10 mg oral tablet (10 sources) Angiotensin Converting Enzyme Inhibitor Start: 02-26-2024 take 1 tablet by mouth once daily lisinopril 10 MG tablet Indications: Essential hypertension, benign (CMS/HCC) Take 1 tablet by mouth once daily 90 tablet 02/26/2024 Active Start: 11-29-2023 take 1 tablet by kristen th once daily lisinopril 10 MG tablet Indications: Essential hypertension, benign (CMS/HCC) Take 1 tablet by mouth once daily 90 tablet 11/29/2023 Active take 1 tablet by kristen th every twenty-four hours Lisinopril 10 MG 1 tablet Orally Once a day Active triamcinolone acetonide 5 mg /ml topical cream (7 sources) Corticosteroid triamcinolone (K enalog) 0.5 % cream Apply 1 application topically in the morning and 1 application in the evening and 1 application before bedtime. Active Problems Active Problems Problem Classification Problem Date Documented Date Episodic/Chronic Chronic kidney disease (9 sources) Chronic kidney disease stage 3A ; Translations: [Stage 3a chronic kidney disease (CKD)] Onset: 07-04-2023 07-04-2023 Chronic Diabetes mellitus with complications (12 sources) Hyperglycemia due to type 2 diabetes mellitus; Translations: [Type 2 diabetes mellitus with hyperglycemia] Onset: 07-04-2023 01-03-2024 Chronic Disorders of lipid metabolism (8 sources) Hyperlipidemia, unspecified; Translations: [Dyslipidemia] Onset: 06-29-2022 07-04-2023 Chronic Essential hypertension (13 sources) Essential (primary) hypertension; Translations: [Benign essential hypertension] Onset: 06-26-2022 Chronic Fever of unknown origin (1 source) Fever, unspecified Episodic Fracture of upper limb (3 sources) Other fractures of lower end of right radius, initial encounter for closed fracture; Translations: [Closed fracture of distal end of radius] Episodic Gout and other crystal arthropathies (9 sources) Gouty arthropathy; Translations: [Gout, unspecified] Onset: 07-04-2023 07-04-2023 Chronic Nutritional deficiencies (8 sources) Vitamin D deficiency, unspecified; Translations: [Vitamin D deficiency] Onset: 06-29-2022 07-04-2023 Chronic Other aftercare (1 source) Other residential (current) drug therapy; Translations: [OTH GROUP HOME CURRENT DRUG THERAPY] Onset: 06-29-2022 Episodic Other inflammatory condition of skin (7 sources) Psoriasis; Translations: [Psoriasis, unspecified] Onset: 07-04-2023 07-04-2023 Chronic Other nutritional; endocrine; and metabolic disorders (1 source) Obesity, unspecified; Translations: [OBESITY UNSPECIFIED] Onset: 06-29-2022 Chronic Other nutritional; endocrine; and metabolic disorders (1 source) Body mass index (BMI) 30.0-30.9, adult; Translations: [BODY MASS INDEX BMI 30.0-30.9 ADULT] Onset: 06-29-2022 Chronic Other nutritional; endocrine; and metabolic disorders (9 sources) Body mass index 30+ - obesity; Translations: [Obesity, unspecified] Onset: 07-04-2023 07-04-2023 Chronic Other upper respiratory disease (9 sources) Allergic rhinitis due to pollen; Translations: [Allergic rhinitis due to pollen] Onset: 07-04-2023 07-04-2023 Chronic Residual codes; unclassified (7 sources) Hypersomnia; Translations: [Hypersomnia, unspecified] Onset: 07-04-2023 07-04-2023 Chronic Residual codes; unclassified (7 sources) Statin declined; Translations: [Procedure and treatment not carried out because of patient's decision for unspecified reasons] Onset: 01-07-2024 01-07-2024 Episodic Unclassified (1 source) Other fractures of lower end of right radius, initial encounter for closed fracture; Translations: [Other fractures of lower end of right radius, initial encounter for closed fracture] Onset: 02-01-2023 Past or Other Problems Problem Classification Problem Date Documented Da te Episodic/Chronic Diabetes mellitus without complication (2 sources) Prediabetes; Translations: [Prediabetes] Onset: 06-29-2022 07-04-2023 Episodic Mood disorders (2 sources) Mood disorders Onset: 03-12-2024 03-12-2024 Other aftercare (3 sources) Long-term current use of drug therapy; Translations: [Other residential (current) drug therapy] Onset: 07-04-2023 07-04-2023 Episodic Other aftercare (4 sources) Patient encounter status; Translations: [Other residential (current) drug therapy] Onset: 07-04-2023 07-04-2023 Episodic Other non-traumatic joint disorders (1 source) Pain in right wrist; Translations: [Pain in right wrist] Onset: 01-06-2023 Episodic Other screening for suspected conditions (not mental disorders or infectious disease) (8 sources) Encounter for screening for malignant neoplasm of prostate; Translations: [Patient encounter status] Onset: 06-29-2022 07-04-2023 Episodic Viral infection (1 source) COVID-19 Results Test Name Value Interpretation Reference Range Facility ALL CBC WITH AUTO DIFFon BASOPHILS ABSOLUTE AUTO 0.1 [facility] Basophils/100 WBC (Bld) 0.9 % 0.2 - 2.0 % [facility] Eosinophils/100 WBC (Bld) 1.6 % 0.9 - 7.0 % [facility] Erythrocyte distribution width (RBC) [Ratio] 13.8 % 11.0 - 15.0 % [facility] Hematocrit (Bld) [Volume fraction] 45.6 % 42.0 - 54.0 % [facility] Hemoglobin (Bld) [Mass/Vol] 15.0 g/dL 14.0 - 18.0 g/dL [facility] IMMATURE GRANULOCYTES ABS AUTO 0.05 High [facility] Immature granulocytes/100 WBC (Bld) 0.6 % High 0.0 - 0.5 % [facility] Interpretation and review of laboratory results Abnormal [facility] LYMPHOCYTES ABSOLUTE AUTO 2.4 [facility] Lymphocytes/100 WBC (Bld) 27.6 % 20.5 - 60.0 % [facility] MCH (RBC) [Entitic mass] 28.6 pg 25.9 - 34.0 pg [facility] MCHC (RBC) [Mass/Vol] 32.9 g/dL 29.9 - 35.2 g/dL [facility] MCV (RBC) [Entitic vol] 86.9 fL 80.0 - 94.0 fL [facility] MONOCYTES ABSOLUTE AUTO 1.3 High [facility] Monocytes/100 WBC (Bld) 14.9 % High 1.7 - 12.0 % [facility] NEUTROPHILS ABSOLUTE AUTO 4.7 [facility] Neutrophils/100 WBC (Bld) 54.4 % 43.0 - 75.0 % [facility] Platelet mean volume (Bld) [Entitic vol] 9.5 fL 9.5 - 13.5 fL [facility] EO # 0.1 [facility] PLT 234 [facility] RBC 5.25 [facility] WBC 8.7 [facility] COVID/FLU/RSV RT-PCRon 04-13 SARS-CoV-2 (COVID-19) RNA KRISTIE+probe Ql (Unsp spec) Positive [place] [facility] Other COVID/FLU/RSV RT-PCR Negative [facility] Other XR wrist RT 2Von 02-01-2023 XR wrist RT 2V [facility] [place] [address] XRay Report Signed Patient: Alfredito Rodriguez MR#: [id number] 09 : 1955 Acct:[id number] Age/Sex: 67 / M ADM Date: 02/01/23 Loc: [facility] Room: Type: [facility] Attending Dr: Elvis Yang DO Copies to: [...] De Leon M.D.02/01/2023 2:43 PM Dictation Location: [place] [address] Transcribed By: [facility] 02/01/231442 Dictated By: Linsey De Leon MD 02/01/231440 Signed By: 02/01/23 144 Normal [facility] XR wrist RT 2V [facility] Other XR wrist RT 2V [facility] Other XR wrist RT 2V [address] [place] [address] [facility] Other XR wrist RT 2[place] [address] No rt [facility] Other XR wrist RT 2V XRay Report [employer] Other XR wrist RT 2V Signed [facility] Other XR wrist RT 2V Patient: Alfredito Rodriguez MR#: [id number] [place] [facility] Other XR wrist RT 2V 09 [facility] Other XR wrist RT 2V : 1955 Acct:[id number] [employer] Other XR wrist RT 2V Age/Sex: 67 / M ADM Date: 02/01/23 Managed by Q Other XR wrist RT 2V Loc: [place] Room: Type: [facility] Managed by Q Other XR wrist RT 2V Attending Dr: Elvis Yang DO [employer] Other XR wrist RT 2V Copies to: Elvis Yang DO [employer] Other XR wrist RT 2V Ordering Provider: Elvis Yang DO Managed by [employer] Other XR wrist RT 2V Date of Service: 02/01/23 Managed by Q Other XR wrist RT 2V XR/XR wrist RT 2V: Other closed fracture of distal end of right radius, Managed by Q Other XR wrist RT 2V initial [facility] Other XR wrist RT 2V RIGHT WRIST - 2 views Managed by Q Other XR wrist RT 2V COMPARISON: 01/06/2023 Managed by Q Other XR wrist RT 2V CLINICAL DATA: Follow-up distal radius fracture. [employer] Other XR wrist RT 2V AP and lateral views were obtained. A nondisplaced intra-articular fracture is again noted at the [employer] Other XR wrist RT 2V distal radius. There is no change in alignment though there is developing sclerosis. No new f [employer] Other XR wrist RT 2V racture or dislocation is identified. There is no prominent soft tissue swelling. [employer] Other XR wrist RT 2V XR/XR wrist RT 2V Managed by Q Other XR wrist RT 2V IMPRESSION: [employer] Other XR wrist RT 2V STABLE HEALING DISTAL RADIUS FRACTURE. Managed by Q Other XR wrist RT 2V Impression dictated by: Linsey De Leon M.D.02/01/2023 2:43 PM [employer] Other XR wrist RT 2V Dictation Location: [place] [address] Managed by Q Other XR wrist RT 2V Transcribed By: MINA 02/01/23 [facility] Managed by Q Other XR wrist RT 2V Dictated By: Linsey De Leon MD 02/01/23 [facility] Managed by Q Other XR wrist RT 2V Signed By: Krishna Go [employer] Other XR wrist RT 2V 02/01/23 1443 Krishna Mendoza [employer] Other XR wrist RT min 3V*on 2022 XR wrist RT min 3V* [facility] [place] [address] XRay Report Signed Patient: Alfredito Rodriguez MR#: [id number] 09 : 1955 Acct:[id number] Age/Sex: 67 / M ADM Date: 01/06/23 Loc: ER Room: Type: [facility] ER Attending Dr: Copies to: Anuj [...] Blaise Pastrana M.D.01/06/2023 5:49 PM Dictation Location: [place] [address] Transcribed By: [facility] 01/06/231748 Dictated By: Blaise Pastrana II, MD 01/06/231746 Signed By: 01/06/231748 Normal [facility] CBC AUTO DIFFon 06-26-2022 BASO # 0.0 103/ul Normal 0.0-0.1 [facility] Comment on above: Performed By: #### C BC #### [facility] [address] [place] [address] [address] Talia Santana Basophils/100 WBC (Bld) 0.6 % Normal 0.2-2.0 [facility] Comment on above: Performed By: #### C BC #### [facility] [address] [place] [address] Dr. Talia Santana EO # 0.1 103/ul Normal 0.0-0.7 [facility] Comment on above: Performed By: #### C BC #### [facility] [address] [place] [address] Dr. Talia Santana Eosinophils/100 WBC (Bld) 2.0 % Normal 0.9-7.0 [facility] Comment on above: Performed By: #### C BC #### [facility] [address] [place] [address] Dr. Talia Santana Erythrocyte distribution width (RBC) [Ratio] 13.5 % Normal 11.0-15.0 [facility] Comment on above: Performed By: #### C BC #### [facility] [address] [place] [address] Dr. Talia Santana Hematocrit (Bld) [Volume fraction] 41.9 % Critically low 42.0-54.0 [facility] Comment on above: Performed By: #### C BC #### [facility] [address] [place] [address] Dr. Talia Santana Hemoglobin (Bld) [Mass/Vol] 13.8 g/dL Critically low 14.0-18.0 [facility] Comment on above: Performed By: #### C BC #### [facility] [address] [place] [address] Dr. aTlia Santana IG # 0.03 10e3/ul Normal 0.00-0.03 [facility] Comment on above: Performed By: #### C BC #### [facility] [address] [place] [address] Dr. Talia Santana IG % 0.5 % Normal 0.0-0.5 [facility] Comment on above: Performed By: #### C BC #### [facility] [address] [place] [address] Dr. Talia Santana LYMPH # 1.6 103/ul Normal 1.2-3.8 [facility] Comment on above: Performed By: #### C BC #### [facility] [address] [place] [address] Dr. Talia Santana Lymphocytes/100 WBC (Bld) 24.1 % Normal 20.5-60.0 [facility] Comment on above: Performed By: #### C BC #### [facility] [address] [place] [address] Dr. Talia Santana MANUAL DIFF REQ NO Normal [facility] Comment on above: Performed By: #### C BC #### [facility] [address] [place] [address] Dr. Talia Santana MCH (RBC) [Entitic mass] 28.9 pg Normal 25.9-34.0 [facility] Comment on above: Performed By: #### C BC #### [facility] [address] [place] [address] Dr. Talia Santana MCHC (RBC) [Mass/Vol] 32.9 g/dL Normal 29.9-35.2 [facility] Comment on above: Performed By: #### C BC #### [facility] [address] [place] [address] Dr. Talia Santana MCV (RBC) [Entitic vol] 87.8 fL Normal 80.0-94.0 [facility] Comment on above: Performed By: #### C BC #### [facility] [address] [place] [address] Dr. Talia Santana MONO # 0.8 103/ul Normal 0.3-0.8 [facility] Comment on above: Performed By: #### C BC #### [facility] [address] [place] [address] Dr. Talia Santana Monocytes/100 WBC (Bld) 12.7 % Critically high 1.7-12.0 [facility] Comment on above: Performed By: #### C BC #### [facility] [address] [place] [address] Dr. Talia Santana NEUT # 4.0 103/ul Normal 1.4-6.5 [facility] Comment on above: Performed By: #### C BC #### [facility] [address] [place] [address] [address] Talia Santana Neutrophils/100 WBC (Bld) 60.1 % Normal 43.0-75.0 [facility] Comment on above: Performed By: #### C BC #### [facility] [address] [place] [address] [address] Talia Santana Platelet mean volume (Bld) [Entitic vol] 9.8 fL Normal 9.5-13.5 [facility] Comment on above: Performed By: #### C BC #### [facility] [address] [place] [address] [address] Talia Santana PLT 227 103/ul Normal 150-450 [facility] Comment on above: Performed By: #### C BC #### [facility] [address] [place] [address] [address] Talia Santana RBC 4.77 106/ul Normal 4.70-6.10 [facility] Comment on above: Performed By: #### C BC #### [facility] [address] [place] [address] [address] Talia Santana WBC 6.6 103/ul Normal 4.0-11.0 [facility] Comment on above: Performed By: #### C BC #### [facility] [address] [place] [address] Dr. Talia Santaan GLYCOHEMOGLOBIN A1Con 2022 ADA RECOMMENDATION SEE BELOW Normal [facility] Comment on above: Result Comment: ADA RECOMMENDED LIMIT 4.0 - 6.0 ADA THERAPEUTIC TARGET < 7.0 ACTION SUGGESTED > 7.0 Performed By: #### A 1C #### [facility] [address] [place] [address] Dr. Talia Santana Glucose [Mass/Vol] 131 mg/dL Normal [facility] Comment on above: Performed By: #### A 1C #### [facility] [address] [place] [address] [address] Talia Santana HbA1c (Bld) [Mass fraction] 6.2 % Normal 4.5-6.2 [facility] Comment on above: Performed By: #### A 1C #### [facility] [address] [place] [address] [address] Talia Santana LIPID PROFILEon 06-26-2022 CHOL-HDL RATIO NORM SEE BELOW Normal [facility] Comment on above: Result Comment: 3.3 - 4.4 LOW RISK 4.4 - 7.1 AVERAGE RISK 7.1 - 11.0 MODERATE RISK >11.0 HIGH RISK Performed By: #### L IVER, BMP, LIPID, TSH #### [facility] [address] [place] [address] [address] Talia Santana Cholesterol [Mass/Vol] 144 mg/dL Normal <=200 [facility] Comment on above: Performed By: #### L IVER, BMP, LIPID, TSH #### [facility] [address] [place] [address] [address] Talia Santana Cholesterol in HDL [Mass/Vol] 33 mg/dL Critically low 40-60 [facility] Comment on above: Performed By: #### L IVER, BMP, LIPID, TSH #### [facility] [address] [place] [address] [address] Talia Santana Cholesterol in LDL [Mass/Vol] 91.6 mg/dL Normal [facility] Comment on above: Performed By: #### L IVER, BMP, LIPID, TSH #### [facility] [address] [place] [address] [address] Talia Santana Cholesterol.total/Ch olesterol in HDL [Mass ratio] 4.4 {ratio} Normal [facility] Comment on above: Performed By: #### L IVER, BMP, LIPID, TSH #### [facility] [address] [place] [address] [address] Talia Santana HDL NORMAL > or = 60 mg/dl - LOW CARDIOVASCULAR RISK <40 mg/dl - HIGH CARDIOVASCULAR RISK Normal [facility] Comment on above: Performed By: #### L IVER, BMP, LIPID, TSH #### [facility] [address] [place] [address] [address] Talia Santana LDL CALC NORMAL SEE BELOW Normal [facility] Comment on above: Result Comment: <100 mg/dl OPTIMAL 100 - 129 mg/dl NEAR OR ABOVE OPTIMAL 130 - 159 mg/dl BORDERLINE HIGH 160 - 189 mg/dl HIGH >190 mg/dl VERY HIGH Performed By: #### L IVER, BMP, LIPID, TSH #### [facility] [address] [place] [address] [address] Talia Santana Triglyceride [Mass/Vol] 97 mg/dL Normal <=150 [facility] Comment on above: Performed By: #### L IVER, BMP, LIPID, TSH #### [facility] [address] [place] [address] [address] Talia Santana VLDL CALC 19.4 mg/dL Normal [facility] Comment on above: Performed By: #### L IVER, BMP, LIPID, TSH #### [facility] [address] [place] [address] [address] Talia Santana LIVER PROFILEon 06-26-2022 Albumin [Mass/Vol] 3.5 g/dL Normal 3.4-5.0 [facility] Comment on above: Performed By: #### L IVER, BMP, LIPID, TSH #### [facility] [address] [place] [address] [address] Talia Santana Albumin/Globulin [Mass ratio] 0.9 {ratio} Normal [facility] Comment on above: Performed By: #### L IVER, BMP, LIPID, TSH #### [facility] [address] [place] [address] [address] Talia Santana ALP [Catalytic activity/Vol] 64 U/L Normal 46-116 [facility] Comment on above: Performed By: #### L IVER, BMP, LIPID, TSH #### [facility] [address] [place] [address] [address] Talia Santana ALT [Catalytic activity/Vol] 31 U/L Normal 16-63 [facility] Comment on above: Performed By: #### L IVER, BMP, LIPID, TSH #### [facility] [address] [place] [address] [address] Talia Santana AST [Catalytic activity/Vol] 22 U/L Normal 15-37 [facility] Comment on above: Performed By: #### L IVER, BMP, LIPID, TSH #### [facility] [address] [place] [address] Dr. Talia Santana BILI, CONJUGATED 0.2 mg/dL Normal 0.0-0.2 [facility] Comment on above: Performed By: #### L IVER, BMP, LIPID, TSH #### [facility] [address] [place] [address] Dr. Talia Santana Bilirubin [Mass/Vol] 0.8 mg/dL Normal 0.2-1.0 [facility] Comment on above: Performed By: #### L IVER, BMP, LIPID, TSH #### [facility] [address] [place] [address] Dr. Talia Santana Globulin (S) [Mass/Vol] 3.9 g/dL Normal [facility] Comment on above: Performed By: #### L IVER, BMP, LIPID, TSH #### [facility] [address] [place] [address] Dr. Talia Santana Protein [Mass/Vol] 7.4 g/dL Normal 6.4-8.2 [facility] Comment on above: Performed By: #### L IVER, BMP, LIPID, TSH #### [facility] [address] [place] [address] Dr. Talia Santana PROF CHEM 8 (BAS METB)on Anion gap [Moles/Vol] 13.7 mmol/L Normal [facility] Comment on above: Performed By: #### L IVER, BMP, LIPID, TSH #### [facility] [address] [place] [address] Dr. Talia Santana Calcium [Mass/Vol] 9.0 mg/dL Normal 8.5-10.1 [facility] Comment on above: Performed By: #### L IVER, BMP, LIPID, TSH #### [facility] [address] [place] [address] Dr. Talia Santana Chloride [Moles/Vol] 104 mmol/L Normal 98-107 [facility] Comment on above: Performed By: #### L IVER, BMP, LIPID, TSH #### [facility] [address] [place] [address] [address] Talia Santana CO2 [Moles/Vol] 26.7 mmol/L Normal 21.0-32.0 [facility] Comment on above: Performed By: #### L IVER, BMP, LIPID, TSH #### [facility] [address] [place] [address] [address] Talia Santana Creatinine [Mass/Vol] 1.16 mg/dL Normal 0.70-1.30 [facility] Comment on above: Performed By: #### L IVER, BMP, LIPID, TSH #### [facility] [address] [place] [address] Dr. Talia Santana EGFR-AF VENEZUELAN >60 Normal >=60 [facility] Comment on above: Performed By: #### L IVER, BMP, LIPID, TSH #### [facility] [address] [place] [address] [address] Talia Santana EGFR-NON AF VENEZUELAN >60 Normal >=60 [facility] Comment on above: Performed By: #### L IVER, BMP, LIPID, TSH #### [facility] [address] [place] [address] Dr. Talia Santana Glucose [Mass/Vol] 123 mg/dL Critically high 74-106 [facility] Comment on above: Performed By: #### L IVER, BMP, LIPID, TSH #### [facility] [address] [address] [address] Talia Santana Potassium [Moles/Vol] 4.4 mmol/L Normal 3.5-5.1 [facility] Comment on above: Performed By: #### L IVER, BMP, LIPID, TSH #### [facility] [address] [address] [address] Talia Santana Sodium [Moles/Vol] 140 mmol/L Normal 136-145 [facility] Comment on above: Performed By: #### L IVER, BMP, LIPID, TSH #### [facility] [address] [place] [address] [address] Talia Santana Urea nitrogen [Mass/Vol] 12.0 mg/dL Normal 7.0-18.0 [facility] Comment on above: Performed By: #### L IVER, BMP, LIPID, TSH #### [facility] [address] [place] [address] Dr. Talia Santana Urea nitrogen/Creatinine [Mass ratio] 10.3 mg/mg Normal [facility] Comment on above: Performed By: #### L IVER, BMP, LIPID, TSH #### [facility] [address] [address] [address] Talia Santana TSHon 06-26-2022 TSH 1.903 uIU/mL Normal 0.358-3.740 [facility] Comment on above: Performed By: #### L IVER, BMP, LIPID, TSH #### [facility] [address] [place] [address] Dr. Talia Santana VITAMIN D 25 OHon 06-26-2022 VIT D 25-OH 26.4 ng/mL Normal [facility] Comment on above: Performed By: #### P SASC, VITAD #### [facility] [address] [place] [address] Dr. Talia Santana VIT D RANGES SEE BELOW Normal [facility] Comment on above: Result Comment: <20 ng/mL Vit D deficient 20 - <30 ng/mL Vit D insufficient 30 - 100 ng/mL Vit D sufficient >100 ng/mL Potential Toxicity Performed By: #### P SASC, VITAD #### [facility] [address] [place] [address] Dr. Talia Santana Vital Signs Date Time Vital Sign Value Performing Clinician Facility 03-12-2024 09: Body height 177.8 cm Andrzej Zeng MD Work Phone: [facility] 03-12-2024 09:050 Body mass index (BMI) [Ratio] 37.59 kg/m2 Andrzej Zeng MD Work Phone: [facility] 03-12-2024 09:050 Body temperature 97.81 [degF] Andrzej Zeng MD Work Phone: [facility] 03-12-2024 09:11-0500 Body weight 118.84 kg Andrzej Zeng MD Work Phone: [facility] 03-12-2024 09:11-0500 Diastolic blood pressure 74 mm[Hg] Andrzej Zeng MD Work Phone: [facility] 03-12-2024 09:11-0500 Heart rate 88 /min Andrzej Zeng MD Work Phone: [facility] 03-12-2024 09:11-0500 Respiratory rate 18 /min Andrzej Zeng MD Work Phone: [facility] 03-12-2024 09:11-0500 SaO2% (BldA) [Mass fraction] 94 % Andrzej Zeng MD Work Phone: [facility] 03-12-2024 09:11-0500 Systolic blood pressure 130 mm[Hg] Andrzej Zeng MD Work Phone: [facility] 01-07-2024 09:06-0400 Body height 177.8 cm Andrzej Zeng MD Work Phone: [facility] 01-07-2024 09:06-0400 Body mass index (BMI) [Ratio] 38.17 kg/m2 Andrzej Zeng MD Work Phone: [facility] 01-07-2024 09:06-0400 Body temperature 98.01 [degF] Andrzej Zeng MD Work Phone: [facility] 01-07-2024 09:06-0400 Body weight 120.66 kg Andrzej Zeng MD Work Phone: [facility] 01-07-2024 09:06-0400 Diastolic blood pressure 68 mm[Hg] Andrzej Zeng MD Work Phone: [facility] 01-07-2024 09:06-0400 Heart rate 88 /min Andrzej Zeng MD Work Phone: [facility] 01-07-2024 09:06-0400 Respiratory rate 20 /min Andrzej Zeng MD Work Phone: [facility] 01-07-2024 09:06-0400 SaO2% (BldA) [Mass fraction] 92 % Andrzej Zeng MD Work Phone: [facility] 01-07-2024 09:06-0400 Systolic blood pressure 122 mm[Hg] Andrzej Zeng MD Work Phone: [facility] 04-13-2023 14:00-0500 Body height 175.26 cm Anne Green Other Managed by Q Other 04-13-2023 14:00-0500 Body mass index (BMI) [Ratio] 38.39 kg/m2 Anne Carneymond Other Managed [facility] Other 04-13-2023 14:00-0500 Body temperature 100.8 [degF] Anne Carneymond Other Managed [facility] Other 04-13-2023 14:00-0500 Body weight 117.94 kg Anne Carneymond Other Managed [facility] Other 04-13-2023 14:00-0500 Respiratory rate 20 /min Anne Carneymond Other Managed by Q Other 04-13-2023 14:00-0500 SaO2% (BldA) [Mass fraction] 92 % Anne Norma Other Managed by Q Other 01-06-2023 18:06-0400 Body temperature 97.1 [degF] MD Andrzej Zeng Work Phone: [facility] 01-06-2023 18:06-0400 Diastolic blood pressure 68 mm[Hg] MD Andrzej Zeng Work Phone: [facility] 01-06-2023 18:06-0400 Heart rate 67 /min MD Andrzej Zeng Work Phone: [facility] 01-06-2023 18:06-0400 Respiratory rate 18 /min MD Andrzej Zeng Work Phone: [facility] 01-06-2023 18:06-0400 SaO2% (BldA) [Mass fraction] 96 % MD Andrzej Zeng Work Phone: [facility] 01-06-2023 18:06-0400 Systolic blood pressure 125 mm[Hg] MD Andrzej Zeng Work Phone: [facility] 01-06-2023 16:48-0400 Body height 177.8 cm MD Andrzej Zeng Work Phone: [facility] 01-06-2023 16:48-0400 Body weight 116 kg MD Andrzej Zeng Work Phone: [facility] Encounters Encounter Date Encounter Type Care Provider Facility Start: 03-12-2024 End: 03-12-2024 Bamboo flowsheet Andrzej Zeng MD Work Phone: [facility] Start: 03-12-2024 End: 03-12-2024 Bamboo flowsheet Andrzej Zeng MD Work Phone: [facility] Start: 03-12-2024 End: 03-12-2024 Patient encounter procedure Andrzej Zeng MD Work Phone: [facility] Work Phone: Start: 03-12-2024 End: 03-12-2024 Postop follow up visit related to original px Andrzej Zeng MD Work Phone: [facility] Comment on above: Medicare annual well ness visit, subsequent (Primary Dx); Type 2 diabetes mellitus with hyperglycemia, without long-term current use of insulin ([facility]) Start: 03-12-2024 End: 03-12-2024 ambulatory ANDRZEJ NADERER Not Available Start: 01-07-2024 End: 01-07-2024 Bamboo flowsheet Andrzej Zeng MD Work Phone: [facility] Start: 01-07-2024 End: 01-07-2024 Bamboo flowsheet Andrzej Zeng MD Work Phone: [facility] Start: 01-07-2024 End: 01-07-2024 Office outpatient visit 25 minutes Andrzej Zeng MD Work Phone: [facility] Comment on above: Type 2 diabetes chantal itus with hyperglycemia, without long-term current use of insulin (CMS/HCC) (Primary Dx); Essential hypertension, benign (CMS/HCC); Gout, arthropathy; Seasonal allergic rhinitis due to pollen; Statin medication declined by patient; Stage 3a chronic kidney disease (CKD) (CMS/HCC); Type 2 diabetes mellitus with diabetic chronic kidney disease (HCC) (CMS/HCC); Body mass index (BMI) 37.0-37.9, adult Start: 01-07-2024 End: 01-07-2024 ambulatory ANDRZEJ ZENG Not Available Start: 01-03-2024 End: 01-03-2024 Clinisync Result Encounter Andrzej Zeng MD Work Phone: [facility] External Department Unsolicited Start: 01-03-2024 End: 01-03-2024 Clinisync Result Encounter Andrzej Zeng MD Work Phone: [facility] External Department Unsolicited Start: 07-04-2023 End: 07-04-2023 ambulatory ANDRZEJ ZENG Not Available Start: 04-13-2023 End: 04-13-2023 ambulatory Anne Green Other [facility] Other Start: 04-13-2023 Office outpatient vi sit 15 minutes Anne Green [facility] Start: 02-01-2023 Postop follow up vis it related to original px Virginia Alfredo [facility] Start: 02-01-2023 End: 02-01-2023 Patient encounter procedure MD Andrzej Zeng Work Phone: [facility] Start: 02-01-2023 End: 02-01-2023 ambulatory MD Andrzej Zeng Work Phone: [facility] Work Phone: Start: 01-09-2023 End: 01-09-2023 ambulatory Elvis Yang Other [facility] Other Start: 01-09-2023 [facility] visit new patient Elvis Yang [facility] Start: 01-06-2023 End: 01-06-2023 Emergency department patient visit MD Andrzej Zeng Work Phone: [facility] Work Phone: Start: 06-26-2022 End: 06-27-[address] ANDRZEJ ZENG Facility:H1 Procedures Date Procedure Procedure Detail Performing Clinician Start: 01-03-2024 ALL CBC WITH AUTO DIFF Andrzej Zeng MD Work Phone: Start: 02-01-2023 Plain X-ray of right wrist MD Andrzej Zeng Work Phone: Start: 01-06-2023 Plain X-ray of right wrist MD Andrzej Zeng Work Phone: Start: 06-26-[address] ANDRZEJ HERNANDEZ Comment on above: Performed By: #### P [facility], [facility]IT[facility] #### [facility] [address] [place] [address] Dr. Talia Santana Plan of Treatment Date Care Activity Detail Author Start: 02-16-2026 Glaucoma screening Diabetes: R etinopathy Screening [facility] Start: 09-09-2024 End: 09-09-2024 Patient encounter procedure 09/09/2024 9:15 AM EDT Office Visit [facility] [address] [place] [id number] Andrzej Zeng MD [address] [place] [id number] [facility] Start: 07-03-2024 Screening for malign ant neoplasm of colon Colorectal Cancer Screening [facility] Comment on above: Postponed from 07/09 (Patient Refused) Start: 07-02-2024 Hemoglobin A1c measurement Diabetes: Hemoglobin A1C [facility] Start: 03-12-2024 End: 03-12-2025 Albumin, urine, random Albumin, urine, random Lab Routine Type 2 diabetes mellitus with hyperglycemia, without long-term current use of insulin ([facility]) Expected: 03/12/2024 (Approximate), Expires: 03/12/2025 [facility] Work Phone: Comment on above: Expected: 03/12/2024 (Approximate), Expires: 03/12/2025 Start: 03-12-2024 End: 03-12-2024 Patient encounter procedure [facility] Comment on above: Arrived Start: 01-07-2024 End: 01-07-2024 Patient encounter procedure [facility] Comment on above: Arrived Start: 12-22-2023 Influenza vaccination Influenza Vacc ine (#1) [facility] Start: 2021 Pneumococcal Vaccine : 65+ Years (1 of 1 - PCV) Pneumococcal Vaccine: 65+ Years (1 of 1 - PCV) [facility] Start: 07-10-1975 Urine screening for protein Diabetes: Urine Protein Screening [facility] Start: 1966 Glaucoma screening Diabetes: R etinopathy Screening [facility] Start: 1962 Pneumococcal Vaccine : 65+ Years (1 of 2 - PCV) Pneumococcal Vaccine: 65+ Years (1 of 2 - PCV) [facility] Start: 1956 Hemoglobin A1c measurement Diabetes: Hemoglobin A1C [facility] Start: 1956 Medicare Annual Wellness (AWV) Medicare Annual Wellness (AWV) [facility] Start: 1956 Screening for malign ant neoplasm of colon [facility] Patient Education Radius Fracture (DC) [facility] Work Phone: Patient referral [facility] Work Phone: Payers Date Payer Category Payer Self-pay [id number] [phone] [id number] 2021 Medicare [id number] 1959 Medicare [id number] 1956 Unknown [id number] 1956 Unknown [id number] 1956 Unknown [id number] 1956 Unknown [id number] 9 Unknown [id number] Unknown [id number] Worker's Compensation [employer] [place] [id number] Social History Date Type Detail Facility Start: 07-04-2023 End: 01-07-2024 Sex Assigned At [facility] Other Start: 01-06-2023 End: 07-04-2023 Tobacco smoking status NHIS Ex-smoker (finding) [facility] Start: 1955 Sex Assigned At Male F [facility] Start: 04-22-1974 End: 04-22-1994 History of tobacco use Current smoker [facility] Start: 04-22-1974 End: 04-22-1994 History of tobacco use Cigarette Smoker [facility] Start: 07-04-2023 Tobacco use and exposure Smokeless tobacco non-user [facility] Start: 07-04-2023 End: 01-07-2024 History of Social function [facility] Start: 1955 Sex assigned at Not on file [facility] History of Present illness Narrative 03-12-2024 Andrzej Zeng MD - 03/12/2024 9:42 AM Maddi Zeng MD - 03/12/2024 9:00 AM EST Note Date & Type Note Facility 03-12-2024 History of Presen t illness Narrative Associated Problem(s): Medicare annual wellness visit, subsequent Reviewed labs. Discussed proper diet and regular aerobic exercise. Need aerobic exercise 5-6 days a week for 30 minutes at a time. Smaller portions and limit total calories. Declined colon cancer screening. Tetanus every 10 years. Advised not to smoke. Discussed daily Aspirin therapy. Images from the original note were not included. Subjective Patient ID: Alfredito Rodriguez is a 68 y.o. male who presents for Medicare Annual Wellness Visit Initial (wellness). Presents for medicare annual wellness visit. Patient feels well today. Weight up 7 pounds in past year but down 4 pounds since last visit. Tries to stay active and walk several days a week. Plan on getting treadmill for winter. Tries to watch diet and eat healthy. Increased fruits and vegetables. Smaller portions and limits snacking. Tries to limit total daily calories. Reviewed labs. Declines colonoscopy. Review of Systems Constitutional: Negative for fatigue. Respiratory: Negative for cough, shortness of breath and wheezing. Cardiovascular: Negative for chest pain and palpitations. Gastrointestinal: Negative for abdominal pain, diarrhea, nausea and vomiting. Genitourinary: Negative for dysuria. Objective Physical Exam Constitutional: General: He is not in acute distress. Appearance: Normal appearance. HENT: Head: Normocephalic. Right Ear: Tympanic membrane and ear canal normal. Left Ear: Tympanic membrane and ear canal normal. Eyes: Extraocular Movements: Extraocular movements intact. Pupils: Pupils are equal, round, and reactive to light. Cardiovascular: Rate and Rhythm: Normal rate and regular rhythm. Heart sounds: No murmur heard. No friction rub. No gallop. Pulmonary: Breath sounds: Normal breath sounds. No wheezing, rhonchi or rales. Abdominal: General: Bowel sounds are normal. There is no distension. Palpations: Abdomen is soft. Tenderness: There is no abdominal tenderness. There is no guarding or rebound. Musculoskeletal: General: Normal range of motion. Left lower leg: No edema. Neurological: General: No focal deficit present. Mental Status: He is alert. Cranial Nerves: No cranial nerve deficit. Deep Tendon Reflexes: Reflexes normal. Assessment/Plan Problem List Items Addressed This Visit Type 2 diabetes mellitus with hyperglycemia, without long-term current use of insulin ([facility]) Relevant Orders Albumin, urine, random Medicare annual wellness visit, subsequent - Primary Reviewed labs. Discussed proper diet and regular aerobic exercise. Need aerobic exercise 5-6 days a week for 30 minutes at a time. Smaller portions and limit total calories. Declined colon cancer screening. Tetanus every 10 years. Advised not to smoke. Discussed daily Aspirin therapy. documented in this encounter [facility] History of Present illness Narrative 01-07-2024 Andrzej Zeng MD - 01/07/2024 9:41 AM Luis Zeng MD - 01/07/2024 9:41 AM Luis Zeng MD - 01/07/2024 9:41 AM Luis Zeng MD - 01/07/2024 9:40 AM EDT Note Date & Type Note Facility 01-07-2024 History of Presen t illness Narrative Associated Problem(s): Gout, arthropathy No flares and continue allopurinol. Associated Problem(s): Essential hypertension, benign ([facility]) BP controlled and monitor PRN. Associated Problem(s): Stage 3a chronic kidney disease (CKD) ([facility]) Labs show CKD and will monitor. Continue lisinopril. Associated Problem(s): Statin medication declined by patient Discussed increased risk for cardiovascular events and recommendation for statin but declined. Associated Problem(s): Type 2 diabetes mellitus with hyperglycemia, without long-term current use of insulin ([facility]) Labs show new onset diabetes. Declined diabetic education and doesn't want testing supplies. Stick to ADA diet and limit carbs. Discussed recommendation for statin and declined. Due for eye exam and needs to schedule. Associated Problem(s): Seasonal allergic rhinitis due to pollen Allergies controlled with medication. Images from the original note were not included. Subjective Patient ID: Alfredito Rodriguez is a 68 y.o. male who presents for Follow-up (6 m). Follow up HTN, gout, and allergies. Patient had labs drawn 01/02 and now meets criteria for diabetes. Glucose 111 and A1C 6.6. Not watching diet or trying to limit carbs. Discussed options and states has diabetes and doesn't want diabetic education. Declined statin. Checking BP PRN and typically controlled. BP normal today. Taking medication daily and tolerating without side effects. Gout controlled with allopurinol. No joint pain or stiffness. No swelling or erythema. Allergies controlled with medication. No congestion or rhinorrhea. No GARZA or sinus pressure. Ears not plugged or popping. Review of Systems Constitutional: Negative for fatigue. Respiratory: Negative for cough, shortness of breath and wheezing. Cardiovascular: Negative for chest pain and palpitations. Gastrointestinal: Negative for abdominal pain, diarrhea, nausea and vomiting. Genitourinary: Negative for dysuria. Objective Physical Exam Constitutional: General: He is not in acute distress. Appearance: Normal appearance. HENT: Head: Normocephalic. Right Ear: Tympanic membrane and ear canal normal. Left Ear: Tympanic membrane and ear canal normal. Eyes: Extraocular Movements: Extraocular movements intact. Pupils: Pupils are equal, round, and reactive to light. Cardiovascular: Rate and Rhythm: Normal rate and regular rhythm. Heart sounds: No murmur heard. No friction rub. No gallop. Pulmonary: Breath sounds: Normal breath sounds. No wheezing, rhonchi or rales. Abdominal: General: Bowel sounds are normal. There is no distension. Palpations: Abdomen is soft. Tenderness: There is no abdominal tenderness. There is no guarding or rebound. Musculoskeletal: Left lower leg: No edema. Neurological: Mental Status: He is alert. Assessment/Plan Problem List Items Addressed This Visit Essential hypertension, benign ([facility]) BP controlled and monitor PRN. Gout, arthropathy No flares and continue allopurinol. Type 2 diabetes mellitus with hyperglycemia, without long-term current use of insulin ([facility]) - Primary Labs show new onset diabetes. Declined diabetic education and doesn't want testing supplies. Stick to ADA diet and limit carbs. Discussed recommendation for statin and declined. Due for eye exam and needs to schedule. Stage 3a chronic kidney disease (CKD) ([facility]) Labs show CKD and will monitor. Continue lisinopril. Seasonal allergic rhinitis due to pollen Allergies controlled with medication. Statin medication declined by patient Discussed increased risk for cardiovascular events and recommendation for statin but declined. documented in this encounter [facility] Evaluation note 04-13-2023 Note Date & [...] no improvement in 2 to 3 days Managed by Q Other Evaluation note 02-01-2023 Note Date & [...] of this patient was performed by Virginia Alfredo NP and patient will continue with the treatment plan per Dr. Yang, who initiated this treatment plan. Dr. Matthews is present in the office today and providing supervision. Managed by Q Other Evaluation note 01-09-2023 Note Date & [...] discussed that this injury can lead to residential pain and wrist stiffness. We discussed Tylenol and Ibuprofen for pain control. Dec, Other See orders for this visit as documented in the electronic medical record. Managed by Q Other Evaluation note Note Date & Type Note Facility Evaluation note No assessment information availa ble [facility] Work Phone: Evaluation note Note Date & Type Note Facility Evaluation note Diagnosis Essential hypertension, benign (CMS/HCC)- Primary Essential hypertension, benign Gout, arthropathy Gouty arthropathy, unspecified Seasonal allergic rhinitis due to pollen Psoriasis (CMS/HCC) Other psoriasis Obesity (BMI 30-39.9) Screening PSA (prostate specific antigen) Special screening for malignant neoplasm of prostate Vitamin D deficiency Encounter for long-term (current) use of medications Encounter for long-term (current) use of other medications Prediabetes Other abnormal glucose Dyslipidemia (CMS/HCC) Other and unspecified hyperlipidemia Type 2 diabetes mellitus with hyperglycemia, without long-term current use of insulin ([facility]/HCC)- Primary Essential hypertension, benign (CMS/HCC) Essential hypertension, benign Gout, arthropathy Gouty arthropathy, unspecified Seasonal allergic rhinitis due to pollen Statin medication declined by patient Stage 3a chronic kidney disease (CKD) (CMS/HCC) Type 2 diabetes mellitus with diabetic chronic kidney disease (CMS/HCC) Body mass index (BMI) 37.0-37.9, adult Medicare annual wellness visit, subsequent- Primary Type 2 diabetes mellitus with hyperglycemia, without long-term current use of insulin ([facility]/HCC) documented in this encounter [facility] Evaluation note Note Date & Type Note Facility Evaluation note Diagnosis Type 2 diabetes mellitus with hyperglycemia, without long-term current use of insulin (CMS/HCC)- Primary Essential hypertension, benign (CMS/HCC) Essential hypertension, benign Gout, arthropathy Gouty arthropathy, unspecified Seasonal allergic rhinitis due to pollen Statin medication declined by patient Stage 3a chronic kidney disease (CKD) (CMS/HCC) Type 2 diabetes mellitus with diabetic chronic kidney disease ([facility]) Body mass index (BMI) 37.0-37.9, adult documented in this encounter [facility] History general Narrative - Reported Note Date & Type Note Facility History general Narrative - Reported Type Medical History Gout Medical History high blood pressure Medical History kidney stones Hospitalization History chest pain Managed by Q Other History general Narrative - Reported Note Date & Type Note Facility History general Narrative - Reported Type Medical History Gout Medical History high blood pressure Medical History kidney stones Hospitalization History No know Hospitalization history Managed by Q Other Summary Purpose Family History No Family History Records FoundNo Family History Records FoundNo Family History Records Found Advance Directives Advance Directive Response Recorded Date/ Time Advance Directives No December 7:19pm Chief Complaint and Reason for Visit Chief Complaint fall-1600 Additional Source Comments (unrecognized sect ion and content) No Status Records FoundNo Status Records FoundNo Status Records Found INFORMATION SOURCE (unrecogn ized section and content) DATE CREATED AUTHOR 06/30/2022 [facility] DATE CREATED AUTHOR AUTHOR'S ORGANIZ ATION 10/11/2023 [facility] DATE CREATED AUTHOR AUTHOR'S ORGANIZ ATION 03/15/2024 [facility] EPIC REASON FOR VISIT (unrecogniz ed section and content) Reason Comments Medicare Annual Wellness Visit Initial w eduardo Reason Comments Follow-up 6 m Care Teams (unrecognized sec tion and content) Team Status: Active Member Role Status Dates Andrzej Zeng MD Primary Care Provider Active Team Status: Inactive Member Role Status Dates Andrzej Zeng MD Primary Care Provider Active Anuj Spicer MD Emergency Provider Active Team Status: Inactive Member Role Status Dates Andrzej Zeng MD Primary Care Provider Active Elvis Yang DO Attending Provider Active Product Safety Technician Relationship Specialty Start Date End Date Andrzej Zeng MD [address] [place] [address] PCP - General Family Medicine 05/27/23 Product Safety Technician Relationship Specialty Start Date End Date Andrzej Zeng MD [address] [place] [phone] PCP - General Family Medicine 05/27/23 Product Safety Technician Relationship Specialty Start Date End Date Andrzej Zeng MD [address] [place] [phone] PCP - General Family Medicine 05/27/23 Product Safety Technician Relationship Specialty Start Date End Date Andrzej Zeng MD [address] [place] [phone] PCP - General Family Medicine 05/27/23 Product Safety Technician Relationship Specialty Start Date End Date Andrzej Zeng MD [address] [place] [address] PCP - General Family Medicine 05/27/23 Goals (unrecognized section and content) Goals may [...] BE BASED ON THE PRIMARY CLINICAL RECORDS. [employer] provides no warranty or guarantee of the accuracy or completeness of information in this document.
[2024-09-07 12:21] LABS: Microalbumin Urine Random 16.7 mg/dL (<=30.0)
== END 2024-09-07 11:00 | disposition home or self-care (01) ==
LOC: LAB 11:02
PROVIDERS: PCP Family Medicine; Visit Provider Family Medicine
DX: E11.65 Type 2 diabetes mellitus with hyperglycemia (principal)
CPT/HCPCS: 82043

== ENCOUNTER 2025-04-21 09:28 | Outpatient (OUT) | payer MEDICARE, SELFPAY ==
--- OUTSIDE RECORDS SUMMARY | 2025-04-21 09:37 | XMS_ITS | Clinical Summary ---
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 Name Role Phone Andrzej Jack MD Primary Care Provider [phone] Andrzej Jack MD Unavailable Allergies No known active allergies Medications MedicationSigDispense QuantityRefillsLast FilledStart DateEnd DateStatus triamcinolone (Kenalog) 0.5 % cream Apply 1 application topically in the morning and 1 application in the evening and 1 application before bedtime.Active lisinopril 10 MG tablet Indications:Essential hypertension, benignTake 1 tablet (10 mg) by mouth Daily 90 tablet 5Active allopurinol (Zyloprim) 100 MG tablet Indications:Arthritis, goutyTake 1 tablet by mouth once daily 90 tablet 5Active Active Problems ProblemNoted DateDiagnosed DateMedicare annual wellness visit, subsequent 03/12/2024 Assessment & Plan (03/12/2024 9:42 AM EST): Reviewed labs. Discussed proper diet and regular aerobic exercise. Need aerobic exercise 5-6 days aweek for 30 minutes at a time. Smaller portions and limit total calories. Declined colon cancer screening. Tetanus every 10 years. Advised not to smoke. Discussed daily Aspirin therapy. Statin medication declined by pzfnmah7101/07/2024 Assessment & Plan (01/07/2024 9:40 AM EDT): Discussed increased risk for cardiovascular events and recommendation for statin but declined. Essential hypertension, fidyrj2307/04/2023 Assessment & Plan (09/09/2024 9:52 AM EDT): BP controlled and monitor PRN. Assessment & Plan (01/07/2024 9:41 AM EDT): BP controlled and monitor PRN. Assessment & Plan (07/04/2023 9:32 AM EDT): BP controlled and monitor PRN. Tinaclpobjpr15/14/2024 Assessment & Plan (09/09/2024 9:53 AM EDT): Declined statin Gout, /14/2024 Assessment & Plan (09/09/2024 9:53 AM EDT): No flares and continue allopurinol. Assessment & Plan (01/07/2024 9:41 AM EDT): No flares and continue allopurinol. Assessment & Plan (07/04/2023 9:32 AM EDT): No flares and continue allopurinol. Hypersomnia, xrkwaxzyoio48/14/2024Type 2 diabetes mellitus with hyperglycemia, without long-term current use of reatvzs7207/04/2023 Assessment & Plan (09/09/2024 9:52 AM EDT): Not checking BS and A1C 6.5. Stick to ADA diet and limit carbs. Discussed recommendation for statinand declined. Assessment & Plan (01/07/2024 9:40 AM EDT): Labs show new onset diabetes. Declined diabetic education and doesn't want testing supplies. Stick to ADA diet and limit carbs. Discussed recommendation for statin and declined. Due for eye exam and needs to schedule. Kvqnrlref63/14/2024 Assessment & Plan (07/04/2023 9:33 AM EDT): Occasional flares and use steroid cream PRN. Stage 3a chronic kidney disease (CKD)07/04/2023 Assessment & Plan (09/09/2024 9:53 AM EDT): Will monitor. Assessment & Plan (01/07/2024 9:41 AM EDT): Labs show CKD and will monitor. Continue lisinopril. Vitamin D eoaugywehu56/14/2024lass 2 severe obesity due to excess calories with serious comorbidity and body mass index (BMI) of37.0 to 37.9 in adult07/04/2023 Assessment & Plan (09/09/2024 9:52 AM EDT): Weight loss indicated. Seasonal allergic rhinitis due to pshvzj6907/04/2023 Assessment & Plan (09/09/2024 9:53 AM EDT): Allergies controlled with medication. Assessment & Plan (01/07/2024 9:41 AM EDT): Allergies controlled with medication. Assessment & Plan (07/04/2023 9:33 AM EDT): Symptoms controlled with medication and continue. Screening PSA (prostate specific antigen)07/04/2023Encounter for long-term (current) use of esnczuzdbva16/14/2024 Family History Medical HistoryRelationNameCommentsCerebrovascular diseaseFatherHeart failure FatherHypertensionFatherCerebrovascular diseaseMotherRelationNameStatusComments FatherDeceasedMotherDeceased Social History Tobacco UseTypesPacks/DayYears UsedDateSmoking Tobacco: ZfjymfUgvolagdlu5028 - 1994Smokeless Tobacco: Never Tobacco Cessation:Counseling Given: Not Answered PHQ-2AnswerDate RecordedPatient Health Questionnaire-2 Hqtgo37105/12/2023Sex and Gender InformationValueDate RecordedSex Assigned at BirthNot on fileLegal Sex Male01/22/2023 10:41 AM EDTGender IdentityNot on fileSexual OrientationNot on file Last Filed Vital Signs Vital SignReadingTime TakenCommentsBlood Hrqbgefi544/6205 9:12 AM EDT Vnquq6789 9:12 AM MKPGdrxsrrdqub78.8 ??C (98.2 ??F)09/09/2024 9:12 AM EDTRespiratory Koxb078209/09/2024 9:12 AM EDTOxygen Ktzykofjng45%09/09/2024 9:12 AM EDTInhaled Oxygen Concentration--Gcyiwb592 kg (263 lb)09/09/2024 9:12 AM EDT Mpfbcr977.8 cm (5' 10 )09/09/2024 9:12 AM EDTBody Mass Index37.7409/09/2024 9:12 AM EDT Plan of Treatment Health MaintenanceDue DateLast DoneCommentsCT Fyikwhkjcont75/20/1957Colonoscopy 1956FIT-DNA1956FIT1956FOBT1956Medicare Annual Wellness (AWV)1955 3779Rsfcdjpracciy20/20/1957Pneumococcal Vaccine: 65+ Years (1 of 2 - PCV)07/10/1975Influenza Vaccine (#1)2024Diabetes: Hemoglobin A1C03/12/2025 09/09/2024, 01/03/2024iabetes: Urine Protein Hdzaantrx82/19/16342409/07/2024 Colorectal Cancer Wbicjxoau73/21/2026Postponed from 1956 (Patient Refused) Diabetes: Retinopathy Ekflwpuqq32 Procedures Procedure NamePriorityDate/TimeAssociated DiagnosisCommentsPOCT GLYCOSYLATED HEMOGLOBIN (HGB A1C)Wrqctea0509/09/2024 9:41 AM EDT Type 2 diabetes mellitus with hyperglycemia, without long-term current use of insulin (HCC) from Last 3 Months or Most Recently Relevant to Health Maintenance Results * POCT glycosylated hemoglobin (Hb A1C) docked device (09/09/2024 9:41 AM EDT) ComponentValueRef RangeTest MethodAnalysis TimePerformed AtPathologist SignatureHemoglobin A1C6.5Specimen (Source)Anatomical Location / Laterality Collection Method / VolumeCollection TimeReceived TimeBloodVenous blood specimen / Wzfgpdb6909/09/2024 9:41 AM EDT Narrative Authorizing ProviderResult TypeResult StatusMarc Naderer MDPOINT OF CARE TEST ENTER/EDIT ORDERABLESEdited Result - Final from Last 3 Months or Most Recently Relevant to Health Maintenance Insurance Care Teams Team MemberRelationshipSpecialtyStart DateEnd Date Andrzej Jack MD [facility] - [facility] Andrzej Jack MD [address] [place] [address] PCP - ACO [facility]05/29/24
[2025-04-21 10:13] LABS: Hematocrit 47.8 % (42.0-54.0); Hemoglobin 15.8 g/dL (14.0-18.0); Immature Granulocytes Abs Auto 0.04 10^3/uL (0.00-0.03); Immature Granulocytes Pct Auto 0.5 % (0.0-0.5); Lymphocytes Absolute Auto 1.9 10^3/uL (1.2-3.8); Mean Corpuscular HGB Conc 33.1 g/dL (29.9-35.2); Mean Corpuscular Hemoglobin 29.3 pg (25.9-34.0); Mean Corpuscular Volume 88.7 fL (80.0-94.0); Platelet Count 230 10^3/uL (150-450); Red Blood Count 5.39 10^6/uL (4.70-6.10); White Blood Count 8.0 10^3/uL (4.0-11.0)
[2025-04-21 10:37] LABS: Alanine Aminotransferase 35 U/L (16-63); Albumin Globulin Ratio 0.7; Albumin Level 3.4 g/dL (3.4-5.0); Alkaline Phosphatase 70 U/L (46-116); Anion Gap 13.5; Aspartate Amino Transferase 19 U/L (15-37); Blood Urea Nitrogen 19.0 mg/dL (7.0-18.0); Calcium 8.9 mg/dL (8.5-10.1); Carbon Dioxide 24.9 mmol/L (21.0-32.0); Chloride 105 mmol/L (98-107); Cholesterol 154 mg/dL (<=200); Estimated GFR (African America >60 (>=60 mL/min/1.73m^2); Estimated GFR (Non-African Ame 53 (>=60 mL/min/1.73m^2); Globulin 4.7 g/dL; Glucose 132 mg/dL (74-106); HDL Cholesterol 34 mg/dL (40-60); Potassium 4.4 mmol/L (3.5-5.1); Sodium 139 mmol/L (136-145); Thyroid Stimulating Hormone 2.609 uIU/mL (0.358-3.740); Total Protein 8.1 g/dL (6.4-8.2); Triglycerides 124 mg/dL (<=150); VLDL CHOLESTEROL 24.8 mg/dL
== END 2025-04-21 09:29 | disposition home or self-care (01) ==
PROVIDERS: PCP Family Medicine; Visit Provider Family Medicine
DX: E11.65 Type 2 diabetes mellitus with hyperglycemia (principal); Z79.899 Other long term (current) drug therapy; E78.5 Hyperlipidemia, unspecified; E66.812 Obesity, class 2; Z68.37 Body mass index [BMI] 37.0-37.9, adult; Z12.5 Encounter for screening for malignant neoplasm of prostate
CPT/HCPCS: 36415; 80053; 80061; 83036; 84443; 85025; G0103